=== PATIENT | male | born 1975 | race Caucasian/White ===

== ENCOUNTER 2018-07-21 15:35 | Day surgery (SDC) | payer OTHER ==
[2018-07-18 17:04] VITALS: BMI 30.4
[2018-07-21 16:32] LABS: ALB/GLOB RATIO 1.2 (1.1-1.8); ALBUMIN 4.6 g/dL (3.0-4.8); ALT/SGPT 31 U/L (7-56); AST/SGOT 29 U/L (17-59); BLOOD UREA NITROGEN 14 mg/dL (7-21); CALCIUM 9.3 mg/dL (8.4-10.5); GFR NON-AFRICAN AMERICAN > 60
[2018-07-21 16:46] LABS: BASO # 0.03 K/mm3 (0.0-2.0); BASO % 0.3 % (0.0-3.0); EOS # 0.3 (0.0-0.7); EOS % 2.8 % (1.5-5.0); HEMOGLOBIN 16.2 g/dL (14.0-18.0); LYMPH # 3.2 (1.2-3.4); LYMPH % 33.6 % (22.0-35.0); MEAN CELL VOLUME 79.5 fl (80.0-105.0); MEAN CORPUSCULAR HEMOGLOBIN 25.6 pg (25.0-35.0); MEAN CORPUSCULAR HGB CONC 32.1 g/dl (31.0-37.0); MEAN PLATELET VOLUME 9.2 fl (7.0-11.0); MONO # 0.6 (0.1-0.6); MONO % 5.8 % (1.0-6.0); RBC 6.34 10^6/uL (3.5-6.1); RED CELL DISTRIBUTION WIDTH 13.9 % (11.5-14.5); WHITE BLOOD COUNT 9.6 10^3/uL (4.5-11.0)
[2018-07-21 17:10] VITALS: TEMP 98.1
[2018-07-21] MEDS ORDERED: Midazolam 2 MG/2 ML VIAL ONE (18:31)
[2018-07-21] MEDS ORDERED: Propofol 10 mg/ml Inj (20 ML) ONE (18:31)
[2018-07-21] MEDS ORDERED: Bupivacaine 0.5% 50 ML IJ ONE (18:40)
[2018-07-21] MEDS ORDERED: HYDROmorphone 0.5 mg/0.5 ml ISec IVP PRN (20:14)
[2018-07-21] MEDS ORDERED: Lactated Ringer's 1,000 ML IV SCH (20:15)
--- NOTE | 2018-07-21 20:16 | PCM.SURG1 ---
Surgeon's Initial Post Op Note - Surgeon's Notes Surgeon: Dr. Herminio Blackmon Resilient Tile Installer: Jhoan Sullivan PGY2, Jhoan Bowman PGY2 Type of Anesthesia: General LMA Anesthesia Administered By: Dr. Nathan Pre-Operative Diagnosis: Right 5th metatarsal fracture Operative Findings: see operative report. m: 4.0 x 34mm synthes partially threaded cannulated screw, 2-0 nylon. i: 10cc 0.5% marcaine Post-Operative Diagnosis: same Operation Performed: Right closed reduction and percutaneous pinning of 5th metatarsal fracture Specimen/Specimens Removed: n/a Estimated Blood Loss: EBL {In ML}: 1 Blood Products Given: N/A Drains Used: No Drains Post-Op Condition: Good Date of Surgery/Procedure: 07/21/18 Time of Surgery/Procedure: 20:16
[2018-07-21] MEDS ORDERED: Oxycodone/Acetaminophen 5/325 mg Tab PO PRN ×2 (20:17)
[2018-07-21 22:29] VITALS: RESP 18
[2018-07-21 23:26] VITALS: BP 131/88; PULSE 96; O2SAT 95
--- NOTE | 2018-07-22 12:18 | RAD ---
Date of service: 07/21/2018 PROCEDURE: Right Foot Radiographs. HISTORY: s/p right 5th metatarsal fracture orif COMPARISON: None. TECHNIQUE: 3 views obtained. FINDINGS: BONES: There is a screw through a transverse fracture at the base of the 5th metatarsal. JOINTS: Normal. SOFT TISSUES: Normal. OTHER FINDINGS: None. IMPRESSION: There is a screw through a transverse fracture at the base of the 5th metatarsal.
--- NOTE | 2018-07-22 12:19 | RAD ---
Date of service: 07/21/2018 PROCEDURE: Fluoroscopy up to 1 hr HISTORY: ORIF RT 5TH METATARSAL COMPARISON: TECHNIQUE: 150.3 sec of fluoro time. Cumulative dose 4.24 mGy. Three images submitted FINDINGS: There is a screw through a transverse fracture at the base of the 5th metatarsal. IMPRESSION: As above
--- NOTE | 2018-07-24 23:12 | OP ---
PROCEDURE DATE: 07/21/2018 PREOPERATIVE DIAGNOSIS: Right foot fifth metatarsal fracture. POSTOPERATIVE DIAGNOSIS: Right foot fifth metatarsal fracture. PROCEDURE: Right foot fifth metatarsal closed reduction and percutaneous pinning. SURGEON: Herminio Blackmon DPM ASSISTANTS: Rk Sullivan DPM, PGY-2 and Benjamin Bowman DPM, PGY-2 ANESTHESIA: General LMA. ANESTHESIOLOGIST: Kevni Nathan DO INDICATIONS: The patient is a 43-year-old male with the above mentioned diagnosis. The patient is being treated by Dr. Blackmon in his office on an outpatient basis where he has exhausted multiple forms of conservative treatment. The patient requires surgical intervention at this time. The patient signed the consent after careful explanation of risks, benefits, alternatives, and complications of procedure and wishes to proceed. No guarantees were given nor implied. NPO was confirmed prior to bringing the patient to the operating room. PREPARATION: The patient was brought into the operating room and placed on the operating room table in supine position. A time-out was performed for identification of the correct patient and procedure. After the induction of general LMA, the right foot was prepped and draped in a normal sterile manner. A well-padded pneumatic ankle tourniquet was placed on to the patient's right lower extremity. An Esmarch tourniquet was inflated to 250 mmHg and the procedure began. DESCRIPTION OF PROCEDURE: Right fifth metatarsal fracture closed reduction and percutaneous pinning: Attention was directed to the lateral aspect of the right foot at the base of the fifth metatarsal. Under C-arm guidance, the styloid process was identified. An approximately 2-cm linear longitudinal incision was made dorsolateral to the right fifth metatarsal base where the fracture was located. The incision was deepened through subcutaneous tissue using a combination of sharp and blunt dissection with care being taken to identify and retract all vital neurovascular structures. All bleeders were cauterized and ligated as necessary. At this time, a K-wire was placed across the fracture site. Following AO principles and technique, a 4.0 x 34 mm Synthes partially threaded cannulated screw was placed across the fracture site with compression noted, and the fracture reduced to a more anatomical alignment. It was then confirmed under fluoroscopic guidance. The surgical site was then irrigated with copious amounts of sterile saline. Subcutaneous tissue was closed using 4-0 Vicryl, and the skin was reapproximated using 2-0 nylon using a vertical mattress technique. Postoperative dressings included Xeroform and a dry sterile dressing. POSTOPERATIVE CONDITION: The patient tolerated the procedure and anesthesia well and was escorted to the recovery room with vital signs stable and neurovascular status intact to the right lower extremity. The patient will follow up with Dr. Blackmon in his office on an outpatient basis. Rk Sullivan DPM Herminio Blackmon DPM
== END 2018-07-21 23:11 | disposition home or self-care (01) ==
LOC: SDS 15:35 → 5RSO 21:22 → SDS 23:11
PROVIDERS: ATTEND Podiatrist
DX: S92.351A Displaced fracture of fifth metatarsal bone, right foot, initial encounter for closed fracture (principal); W19.XXXA Unspecified fall, initial encounter; Y92.9 Unspecified place or not applicable
CPT/HCPCS: 28476; 36415; 73630; 80053; 85025; C1713; C1769; J0690; J1170; J2250; J2704; J3010; J7120 ×2

== ENCOUNTER 2018-07-28 15:41 | Inpatient (IN) | payer OTHER ==
[2018-07-28 16:00] VITALS: BMI 31.9
[2018-07-28] MEDS ORDERED: Sodium Chloride 0.9% 1,000 ML IV STA (16:31)
--- NOTE | 2018-07-28 17:15 | ED PDOC ---
Arrival/HPI - General Chief Complaint: Lower Extremity Problem/Injury Historian: Patient - History of Present Illness Narrative History of Present Illness (Text): 07/28/18 17:10 43 year old M with pmh of HTN and osteoarthritis presents via EMS with chief complaint of chest pain and SOB x2days. Patient also complains of left shoulder pain when with deep inhalation. Patient report taking motrin which failed to relive any pain. Patient recently had right leg surgery. Patient denies any fevers, chills, headache, dizziness, dyspnea on exertion, cough, diaphoresis, abdominal pain, nausea, vomiting, diarrhea, back pain, neck pain, or any other complaint. Time/Duration: < week Symptom Onset: Sudden Symptom Course: Unchanged Activities at Onset: Light Context: Home Past Medical History - Provider Review Nursing Documentation Reviewed: Yes - Tetanus Immunization Tetanus Immunization: Unknown, Up to Date - Past Medical History Past Medical History: No Previous - Cardiac Hx Pacemaker: No - Neurological Hx Paralysis: No - Hematological/Oncological Hx Blood Transfusions: No - Musculoskeletal/Rheumatological Hx Musculoskeletal Disorders: No - Psychiatric Hx Emotional Abuse: No Hx Physical Abuse: No Hx Substance Use: No - Past Surgical History Past Surgical History: No Previous - Anesthesia Hx Anesthesia: Yes Hx Anesthesia Reactions: No Hx Malignant Hyperthermia: No - Suicidal Assessment Feels Threatened In Home Enviroment: No Family/Social History - Physician Review Nursing Documentation Reviewed: Yes Family/Social History: Unknown Family HX Smoking Status: Heavy Smoker > 10 Cigarettes Daily Hx Alcohol Use: No Hx Substance Use: No Hx Substance Use Treatment: No Allergies/Home Meds Allergies/Adverse Reactions: Allergies No Known Allergies Allergy (Verified 10/30/15 17:46) Home Medications: Home Meds Medication Instructions Recorded Confirmed Metoprolol Succinate XL [Toprol XL] 25 mg PO DAILY 10/30/15 07/21/18 hydroCHLOROthiazide [Hydrodiuril] 25 mg PO DAILY 07/18/18 07/21/18 Review of Systems - Physician Review All systems were reviewed & negative as marked: Yes - Review of Systems Constitutional: absent: Fevers ENT: absent: Sore Throat, Rhinorrhea, Epistaxis Respiratory: SOB. absent: Cough, Wheezing Cardiovascular: Chest Pain. absent: Palpitations, Syncope Gastrointestinal: absent: Abdominal Pain, Constipation, Diarrhea, Nausea, Vomiting Musculoskeletal: Arthralgias (left shoulder). absent: Back Pain, Neck Pain Skin: absent: Rash Neurological: absent: Headache, Dizziness Physical Exam Vital Signs Reviewed: Yes Medical Decision Making ED Course and Treatment: 07/28/18 17:15 Impression: 43 year old M presents via EMS with chief complaint of chest pain and SOB x2days Plan: -- Labs --Rocephin --Azithromycin -- EKG -- Toradol -- Reglan -- Urinalysis -- Reassess and disposition Prior Visits: Notes and results from previous visits were reviewed. Progress Notes: 07/28/18 18:37 CXR reviewed with left lower lobe infiltrate noted and leukocytosis of 12 noted. Antibiotics ordered with patient and family updated on plan for admission. Discussed case with Dr. Phillips(hospitalist) who accepts patient under his service. - Lab Interpretations Lab Results: 07/28/18 17:45 07/28/18 17:45 Lab Results 07/28/18 17:45: Sodium 135, Potassium 4.4, Chloride 98, Carbon Dioxide 26, Anion Gap 15, BUN 13, Creatinine 0.7 L, Est GFR ( Amer) > 60, Est GFR (Non-Af Amer) > 60, Random Glucose 106, Calcium 8.8, Total Bilirubin 0.7, AST 102 H D, ALT 137 H, Alkaline Phosphatase 140 H D, Troponin I 0.02 D, Total Protein 7.8, Albumin 3.8, Globulin 3.9, Albumin/Globulin Ratio 1.0 L, Lipase 34 07/28/18 17:45: PT 15.0 H, INR 1.35, APTT 29.2, D-Dimer, Quantitative 1530 H 07/28/18 17:45: WBC 12.4 H D, RBC 5.55, Hgb 14.2 D, Hct 43.3, MCV 78.0 L, MCH 25.6, MCHC 32.8, RDW 13.8, Plt Count 271, MPV 9.2, Neut % (Auto) 64.3, Lymph % (Auto) 21.4 L, [place] % (Auto) 13.3 H, Eos % (Auto) 0.8 L, Baso % (Auto) 0.2, Lymph # (Auto) 2.7, [place] # (Auto) 1.6 H, Eos # (Auto) 0.1, Baso # (Auto) 0.02, Absolute Neuts (auto) 7.95 H I have reviewed the lab results: Yes - RAD Interpretation Narrative RAD Interpretations (Text): 07/28/18 18:16 Chest X ray Left lower lobe airspace consolidation appears consistent with pneumonia. Correlate clinically. Left hilar prominence. Radiology Orders: 07/28/18 16:31 CHEST PORTABLE [RAD] Stat [employer] Salesperson: Radiologist - EKG Interpretation EKG Interpretation (Text): 07/28/18 16:13 EKG Sinus Tachycardia @ 102 BPM. [address]H present. No ST elevations. Interpreted by ED Physician: Yes Type: 12 lead EKG - Medication Orders Current Medication Orders: Sodium Chloride (Sodium Chloride 0.9%) 1,000 mls @ 999 mls/hr IV .Q1H1M STA Stop: 07/28/18 17:31 Discontinued Medications Ketorolac Tromethamine (Toradol) 60 mg IM STAT STA Stop: 07/28/18 16:17 Metoclopramide HCl (Reglan) 10 mg IVP STAT STA Stop: 07/28/18 16:35 Ceftriaxone Sodium (Rocephin 1 Gram Ivpb) 1 gm in 100 mls @ 100 mls/hr IVPB STAT STA; Protocol Stop: 07/28/18 19:08 Last Admin: 07/28/18 18:30 Dose: 100 mls/hr eMAR Start Stop Document 07/28/18 18:30 CD (Rec: 07/28/18 18:30 CD [place] [id number]) Intravenous Solution Start Date 07/28/18 Start Time 18:30 End Date 07/28/18 End time 19:30 Total Infusion Time 60 Azithromycin (Zithromax 500mg In Ns) 500 mg in 250 mls @ 167 mls/hr IVPB STAT STA; Protocol Stop: 07/28/18 19:38 Discontinued Medications Sodium Chloride (Sodium Chloride 0.9%) 1,000 mls @ 999 mls/hr IV .Q1H1M STA Stop: 07/28/18 17:31 Last Admin: 07/28/18 17:45 Dose: 999 mls/hr eMAR Start Stop Document 07/28/18 17:45 CD (Rec: 07/28/18 18:19 CD [place] [id number]) Intravenous Solution Start Date 07/28/18 Start Time 17:45 End Date 07/28/18 End time 18:46 Total Infusion Time 61 Ketorolac Tromethamine (Toradol) 60 mg IM STAT STA Stop: 07/28/18 16:17 Last Admin: 07/28/18 17:55 Dose: 60 mg MAR Pain Assessment Document 07/28/18 17:55 CD (Rec: 07/28/18 18:19 CD [facility] [place]) Pain Reassessment Is this a pain reassessment? No Sleep Is patient sleeping during reassessment? No Presence of Pain Presence of Pain Yes Description Intensity of Pain at present 10 IM Administration Charges Document 07/28/18 17:55 CD (Rec: 07/28/18 18:19 CD [id number]) Charges for Administration # of IM Administrations 1 Metoclopramide HCl (Reglan) 10 mg IVP STAT STA Stop: 07/28/18 16:35 Last Admin: 07/28/18 17:55 Dose: 10 mg IVP Administration Document 07/28/18 17:55 CD (Rec: 07/28/18 18:19 CD [facility] [place]-[facility]) Charges for Administration # of IVP Administrations 1 - Scribe Statement The provider has reviewed the documentation as recorded by the Gris [place] All medical record entries made by the Daniibdavid were at my direction and personally dictated by me. I have reviewed the chart and agree that the record accurately reflects my personal performance of the history, physical exam, medical decision making, and the department course for this patient. I have also personally directed, reviewed, and agree with the discharge instructions and disposition. Disposition/Present on Arrival - Present on Arrival Any Indicators Present on Arrival: No History of DVT/PE: No History of Uncontrolled Diabetes: No Urinary Catheter: No History of Decub. Ulcer: No History Surgical Site Infection Following: None - Disposition Have Diagnosis and Disposition been Completed?: Yes Diagnosis: PNA (pneumonia) Disposition: HOSPITALIZED Disposition Time: 18:40 Patient Plan: Admission Condition: STABLE
--- NOTE | 2018-07-28 17:32 | RAD ---
HISTORY: right sided rib pain COMPARISON: Chest x-ray performed 12/21/14 TECHNIQUE: Chest, one view. FINDINGS: Examination limited by habitus and patient obliquity. LUNGS: Left lower lobe airspace consolidation appears consistent with pneumonia. Left hilar prominence. PLEURA: No significant pleural effusion identified. No definite pneumothorax . CARDIOVASCULAR: Heart size appears within normal limits. No significant atherosclerotic calcification present. OSSEOUS STRUCTURES: Degenerative changes. VISUALIZED UPPER ABDOMEN: Unremarkable. OTHER FINDINGS: None. IMPRESSION: Left lower lobe airspace consolidation appears consistent with pneumonia. Correlate clinically. Left hilar prominence.
[2018-07-28 17:54] LABS: BASO # 0.02 K/mm3 (0.0-2.0); BASO % 0.2 % (0.0-3.0); EOS # 0.1 (0.0-0.7); EOS % 0.8 % (1.5-5.0); HEMOGLOBIN 14.2 g/dL (14.0-18.0); LYMPH # 2.7 (1.2-3.4); LYMPH % 21.4 % (22.0-35.0); MEAN CORPUSCULAR HEMOGLOBIN 25.6 pg (25.0-35.0); MEAN CORPUSCULAR HGB CONC 32.8 g/dl (31.0-37.0); MEAN PLATELET VOLUME 9.2 fl (7.0-11.0); MONO # 1.6 (0.1-0.6); MONO % 13.3 % (1.0-6.0); RBC 5.55 10^6/uL (3.5-6.1); RED CELL DISTRIBUTION WIDTH 13.8 % (11.5-14.5); WHITE BLOOD COUNT 12.4 10^3/uL (4.5-11.0)
[2018-07-28 18:03] LABS: ALBUMIN 3.8 g/dL (3.0-4.8); ALT/SGPT 137 U/L (7-56); AST/SGOT 102 U/L (17-59); BLOOD UREA NITROGEN 13 mg/dL (7-21); CALCIUM 8.8 mg/dL (8.4-10.5); GFR NON-AFRICAN AMERICAN > 60; LIPASE 34 U/L (23-300)
[2018-07-28] MEDS ORDERED: Piperacill/Tazo 4.5gm in NS 4.5 GM/100 ML BAG IVPB STA (18:05)
[2018-07-28] MEDS ORDERED: cefTRIAXone 1 gm 1 GM/100 ML BAG IVPB STA (18:09)
[2018-07-28] MEDS ORDERED: Azithromycin 500MG/NS 250ml 500 MG/250 ML BAG IVPB STA ×2 (18:09→21:45)
[2018-07-28 18:11] LABS: TROPONIN I 0.02 ng/mL
[2018-07-28 18:13] LABS: INR 1.35; PARTIAL THROMBOPLASTIN TIME 29.2 Seconds (26.9-38.3)
--- NOTE | 2018-07-28 18:58 | CP.PCM.HP ---
<Gustavo Nielsen - Last Filed: 07/28/18 22:12> History of Present Illness - History of Present Illness History of Present Illness: HISTORY & PHYSICAL NOTE FOR HOSPITALIST SERVICE- DR. SAUL Nielsen PGY1 43 y/o M with PMHx HTN, palpitations POD6(07/22) s/p ORIF L 5th metatarsal presented to ED with complaints of SOB, L sided chest pain with radiation to L shoulder, severe R leg pain that began about 3 days ago. Pt reports he underwent his R foot surgery after falling on and was recovering well until 3 days ago when he noticed the symptoms. Pt also noted increased diaphoresis associated with the symptoms. He reports his chest pain is worse with inspiration with increased radiation to L shoulder. He has taken ibuprofen for pain however did not find relief. He also reports shortness of breath, and discomfort with breathing, without productive sputum. He reports subjective fevers. He denies chills, headache, dizziness, numbness/tingling, nausea, vomiting, constipation, diarrhea, dysuria. In ED: 1L NS, ceftriaxone 1gm, metoclopramide 10mg, toradol 60mg IM PMH: HTN, "palpitations" All: NKDA PSH: R 5th metatarsal ORIF SH: smokes cigarette 1pack/day x 20+ years, denies ETOH, illicit drug use FH: Mother: ; CVA, heart disease. Father: ; [place] Meds: Toprol, HCTZ (pharmacy is closed) PMD: Dr. Garcia Pharmacy: [facility] pharmacy Present on Admission - Present on Admission Any Indicators Present on Admission: Yes History of DVT/PE: Yes Review of Systems - Review of Systems Review of Systems: per HPI Past Patient History - Tetanus Immunizations Tetanus Immunization: Unknown, Up to Date - Past Social History Smoking Status: Heavy Smoker > 10 Cigarettes Daily - CARDIAC Hx Pacemaker: No - NEUROLOGICAL Hx Paralysis: No - HEMATOLOGICAL/ONCOLOGICAL Hx Blood Transfusions: No - MUSCULOSKELETAL/RHEUMATOLOGICAL Hx Musculoskeletal Disorders: No - PSYCHIATRIC Hx Emotional Abuse: No Hx Physical Abuse: No Hx Substance Use: No - SURGICAL HISTORY Hx Surgeries: Yes - ANESTHESIA Hx Anesthesia: Yes Hx Anesthesia Reactions: No Hx Malignant Hyperthermia: No Meds Allergies/Adverse Reactions: Allergies Allergy/AdvReac Type Severity Reaction Status Date / Time No Known Allergies Allergy Verified 10/30/15 17:46 Physical Exam - Constitutional Appears: Non-toxic, In Acute Distress - Head Exam Head Exam: NORMAL INSPECTION, NORMOCEPHALIC - Eye Exam Eye Exam: EOMI, Normal appearance - ENT Exam ENT Exam: Mucous Membranes Moist, Normal Exam - Neck Exam Neck exam: Positive for: Normal Inspection - Respiratory Exam Respiratory Exam: Clear to Auscultation Bilateral, NORMAL BREATHING PATTERN. absent: Rales - Cardiovascular Exam Cardiovascular Exam: Tachycardia, +S1, +S2 - GI/Abdominal Exam GI & Abdominal Exam: Soft - Extremities Exam Additional comments: R thigh tenderness Dressing noted over R foot - Back Exam Back exam: NORMAL INSPECTION - Neurological Exam Neurological exam: Alert, Oriented x3 - Psychiatric Exam Psychiatric exam: Normal Affect, Normal Mood - Skin Skin Exam: Dry, Intact, Warm Results - Vital Signs Recent Vital Signs: Last Vital Signs Temp 98.8 F 07/28/18 18:42 Pulse 102 H 07/28/18 18:42 Resp 19 07/28/18 18:42 BP 127/79 07/28/18 18:42 Pulse Ox 95 07/28/18 18:42 - Labs Result Diagrams: 07/28/18 17:45 07/28/18 17:45 Labs: Laboratory Results - last 24 hr 07/28/18 07/28/18 07/28/18 17:45 17:45 17:45 WBC 12.4 H D RBC 5.55 Hgb 14.2 D Hct 43.3 MCV 78.0 L MCH 25.6 MCHC 32.8 RDW 13.8 Plt Count 271 MPV 9.2 Neut % (Auto) 64.3 Lymph % (Auto) 21.4 L [place] % (Auto) 13.3 H Eos % (Auto) 0.8 L Baso % (Auto) 0.2 Lymph # (Auto) 2.7 [place] # (Auto) 1.6 H Eos # (Auto) 0.1 Baso # (Auto) 0.02 Absolute Neuts (auto) 7.95 H PT 15.0 H INR 1.35 APTT 29.2 D-Dimer, Quantitative 1530 H Sodium 135 Potassium 4.4 Chloride 98 Carbon Dioxide 26 Anion Gap 15 BUN 13 Creatinine 0.7 L Est GFR ( Amer) > 60 Est GFR (Non-Af Amer) > 60 Random Glucose 106 Calcium 8.8 Total Bilirubin 0.7 AST 102 H D ALT 137 H Alkaline Phosphatase 140 H D Troponin I 0.02 D Total Protein 7.8 Albumin 3.8 Globulin 3.9 Albumin/Globulin Ratio 1.0 L Lipase 34 Assessment & Plan - Assessment and Plan (Free Text) Assessment: 43 y/o M with PMH of HTN, "palpitations", POD6 s/p R 5th metatarsal ORIF presenting with chest pain, shortness of breath, diaphoresis. Plan: Pulmonary Embolism Pt s/p surgery, tachycardic, SOB, R thigh tenderness Wells score: 9. D-Dimer 1530 CTA 07/28 (prelim): "Evidence of extensive L sided pulmonary emboli as described. Elevated RV/LV ratio estimated to be 1:1 indicative of significant right ventricular strain. Large posterior L lower lobe pneumonic consolidation, less likely pulmonary infarct. Hepatomegaly" B/L LE duplex 07/28 (prelim): Rt (+) EKG: Sinus Tachycardia @ 102 BPM. [address] present. No ST elevations. Start therapeutic lovenox at 1mg/kg Q12h. Monitor CBC Sepsis 2/2 pneumonia Leukocytosis + tachycardia + LLL pneumonia 1L IVF bolus in ED Will continue maintainence IVF CT as noted start empiric rocephin/azithromycin f/u procalcitonin f/u cultures POD6 s/p R 5th metatarsal ORIF dressing in place Podiatry consulted Transaminitis f/u abdominal u/s DVT/GI: Lovenox/Protonix Case reviewed with attending physician, Dr. Saul Nielsen PGY1 <Anisha Ramirez - Last Filed: 07/29/18 02:32> Results - Vital Signs Recent Vital Signs: Last Vital Signs Temp 98.5 F 07/28/18 23:24 Pulse 87 07/28/18 23:24 Resp 16 07/28/18 23:24 BP 123/82 07/28/18 23:24 Pulse Ox 96 07/28/18 23:24 - Labs Result Diagrams: 07/28/18 17:45 07/28/18 17:45 Labs: Laboratory Results - last 24 hr 07/28/18 07/28/18 07/28/18 17:45 17:45 17:45 WBC 12.4 H D RBC 5.55 Hgb 14.2 D Hct 43.3 MCV 78.0 L MCH 25.6 MCHC 32.8 RDW 13.8 Plt Count 271 MPV 9.2 Neut % (Auto) 64.3 Lymph % (Auto) 21.4 L [place] % (Auto) 13.3 H Eos % (Auto) 0.8 L Baso % (Auto) 0.2 Lymph # (Auto) 2.7 [place] # (Auto) 1.6 H Eos # (Auto) 0.1 Baso # (Auto) 0.02 Absolute Neuts (auto) 7.95 H PT 15.0 H INR 1.35 APTT 29.2 D-Dimer, Quantitative 1530 H Sodium 135 Potassium 4.4 Chloride 98 Carbon Dioxide 26 Anion Gap 15 BUN 13 Creatinine 0.7 L Est GFR ( Amer) > 60 Est GFR (Non-Af Amer) > 60 Random Glucose 106 Calcium 8.8 Total Bilirubin 0.7 AST 102 H D ALT 137 H Alkaline Phosphatase 140 H D Troponin I 0.02 D Total Protein 7.8 Albumin 3.8 Globulin 3.9 Albumin/Globulin Ratio 1.0 L Lipase 34 07/28/18 07/29/18 21:30 01:25 WBC RBC Hgb Hct MCV MCH MCHC RDW Plt Count MPV Neut % (Auto) Lymph % (Auto) [place] % (Auto) Eos % (Auto) Baso % (Auto) Lymph # (Auto) [place] # (Auto) Eos # (Auto) Baso # (Auto) Absolute Neuts (auto) PT INR APTT D-Dimer, Quantitative Sodium Potassium Chloride Carbon Dioxide Anion Gap BUN Creatinine Est GFR ( Amer) Est GFR (Non-Af Amer) Random Glucose Calcium Total Bilirubin AST ALT Alkaline Phosphatase Troponin I < 0.01 D < 0.01 Total Protein Albumin Globulin Albumin/Globulin Ratio Lipase Attending/Attestation - Attestation I have personally seen and examined this patient.: Yes I have fully participated in the care of the patient.: Yes I have reviewed all pertinent clinical information: Yes Notes (Text): 07/29/18 02:31 Patient was seen when he was in bed # 566-03. Medical record was reviewed. Agree with history, physical examination, assessment and plan.
[2018-07-28] MEDS: Enoxaparin 100 mg Syringe SC SCH (21:53)
[2018-07-28] MEDS: Sodium Chloride 0.9% 1,000 ML IV SCH (23:47)
[2018-07-29 07:16] LABS: BASO # 0.02 K/mm3 (0.0-2.0); BASO % 0.2 % (0.0-3.0); EOS # 0.1 (0.0-0.7); EOS % 1.4 % (1.5-5.0); HEMOGLOBIN 12.4 g/dL (14.0-18.0); LYMPH % 20.9 % (22.0-35.0); MEAN CELL VOLUME 78.4 fl (80.0-105.0); MEAN CORPUSCULAR HEMOGLOBIN 24.8 pg (25.0-35.0); MEAN CORPUSCULAR HGB CONC 31.6 g/dl (31.0-37.0); MEAN PLATELET VOLUME 8.9 fl (7.0-11.0); MONO # 1.3 (0.1-0.6); MONO % 13.5 % (1.0-6.0); RBC 5.01 10^6/uL (3.5-6.1); RED CELL DISTRIBUTION WIDTH 14.1 % (11.5-14.5); WHITE BLOOD COUNT 9.5 10^3/uL (4.5-11.0)
[2018-07-29 07:39] LABS: LDL CHOLESTEROL 104 mg/dL (0-129)
[2018-07-29 07:40] LABS: ALBUMIN 3.4 g/dL (3.0-4.8); ALT/SGPT 153 U/L (7-56); AST/SGOT 112 U/L (17-59); BLOOD UREA NITROGEN 17 mg/dL (7-21); CALCIUM 8.4 mg/dL (8.4-10.5); GFR NON-AFRICAN AMERICAN > 60; HDL CHOLESTEROL 14 mg/dL (29-60)
--- NOTE | 2018-07-29 08:24 | CT ---
Date of service: 07/28/2018 PROCEDURE: CT Chest with contrast (Pulmonary Angiogram) HISTORY: ?PE COMPARISON: None available. TECHNIQUE: Axial computed tomography images were obtained of the chest in the pulmonary arterial phase of enhancement. Coronal and sagittal reformatted images were created and reviewed. Intravenous contrast dose: 150 cc of Omni 350 Radiation dose: Total exam DLP = 562.45 mGy-cm. This CT exam was performed using one or more of the following dose reduction techniques: Automated exposure control, adjustment of the mA and/or kV according to patient size, and/or use of iterative reconstruction technique. FINDINGS: PULMONARY ARTERIES: Large emboli are seen in the left lower lobe pulmonary artery. Smaller emboli are seen in the upper lobes bilaterally. The right ventricle is dilated consistent with right ventricular strain. AORTA: No acute findings. No thoracic aortic aneurysm. No aortic atherosclerotic calcification or mural plaque present. LUNGS: There consolidation in the left lower lobe. This is in the distribution of the left lower lobe pulmonary emboli and may represent a pulmonary infarct PLEURAL SPACES: Unremarkable. No effusion or pneumothorax. HEART: Unremarkable. No cardiomegaly. No significant pericardial effusion. LYMPH NODES: No lymphadenopathy. BONES, CHEST WALL: Unremarkable. No fracture or destructive lesion OTHER FINDINGS: The report concurs with the preliminary [facility] report IMPRESSION: Large emboli are seen in the left lower lobe pulmonary artery. Smaller emboli are seen in the upper lobes bilaterally. The right ventricle is dilated consistent with right ventricular strain. There consolidation in the left lower lobe. This is in the distribution of the left lower lobe pulmonary emboli and may represent a pulmonary infarct
--- NOTE | 2018-07-29 09:09 | US ---
HISTORY: Leg pain and swelling. Evaluate for DVT PHYSICIAN(S): Herminio Montanez MD. TECHNIQUE: Duplex sonography and color-flow Doppler with graded compression were used to evaluate the deep venous systems of both lower extremities. FINDINGS: There is extensive hypoechoic occlusive thrombus noted in the right external iliac vein, right common femoral vein, right femoral vein, right popliteal vein, and visualized right tibial veins. There is no sonographic evidence for deep venous thrombosis the visualized segments of left lower extremity IMPRESSION: Extensive right iliofemoral DVT as described above. The thrombus extends into the right external iliac vein. The patient should have a CT scan of the chest abdomen and pelvis with IV contrast to evaluate the IVC and iliac veins. If clinically indicated, the patient should be evaluated for possible catheter-directed venous thrombolysis
[2018-07-29] MEDS ORDERED: cefTRIAXone 1 gm 1 GM/100 ML BAG IVPB SCH (10:00)
[2018-07-29] MEDS ORDERED: Azithromycin 500MG/NS 250ml 500 MG/250 ML BAG IVPB SCH (10:00)
[2018-07-29] MEDS ORDERED: Enoxaparin 40 mg Syringe SC SCH (10:00)
[2018-07-29] MEDS: Enoxaparin 100 mg Syringe SC SCH ×2 (10:41→22:10)
[2018-07-29] MEDS: Sodium Chloride 0.9% 1,000 ML IV SCH (10:41)
--- NOTE | 2018-07-29 11:43 | CARD ---
APPROVED REPORT Date of service: 07/29/2018 EKG Measurement Heart [id number] <Conclusion> Normal sinus rhythm early repolarization Borderline ECG
--- NOTE | 2018-07-29 11:45 | US ---
Date of service: 07/29/2018 HISTORY: transaminitis COMPARISON: Upper abdomen segment from CT angio of the chest 07/28/2018 as well as abdomen pelvis CT without contrast 12/03/2015. TECHNIQUE: Sonographic evaluation of the abdomen. FINDINGS: LIVER: Measures 19.3 cm. Diffusely increased echogenicity of the liver parenchyma with prominent size suggestive of [id number] hepatomegaly. No mass. No intrahepatic bile duct dilatation. Normal directional blood flow is appreciated at the main portal vein. GALLBLADDER: Gallbladder is only mildly distended. No cholelithiasis associated. No pericholecystic fluid collection. Evaluation of the wall is limited due to lack of adequate distention of the gallbladder. COMMON BILE DUCT: Measures 4.5 mm. No stones. No dilatation. PANCREAS: The body of pancreas is unremarkable the remainder obscured by overlying bowel gas otherwise. RIGHT KIDNEY: Measures 13.7cm. Normal echogenicity. No calculus, mass, or hydronephrosis. LEFT KIDNEY: Measures 13.0cm. Normal echogenicity. No calculus, mass, or hydronephrosis. SPLEEN: Normal in size and contour. No mass. AORTA: No aneurysmal dilatation. IVC: Unremarkable. OTHER FINDINGS: None. IMPRESSION: Hepatic steatosis noted without focal mass or intrahepatic biliary duct dilatation. [id number] hepatomegaly suggested. Body of pancreas is unremarkable with the remainder obscured by overlying bowel gas.
--- NOTE | 2018-07-29 11:50 | CARD ---
APPROVED REPORT Date of service: 07/28/2018 EKG Measurement Heart [id number] <Conclusion> Sinus tachycardia Minimal voltage criteria for LVH, may be normal variant Borderline ECG
--- NOTE | 2018-07-29 11:59 | CARD ---
APPROVED REPORT Date of service: 07/29/2018 EXAM: Two-dimensional and M-mode echocardiogram with Doppler and color Doppler. INDICATION Pulmonary Embolism DILATED RV 2D DIMENSIONS Left Atrium (2D)3.7 (1.6-4.0cm)IVSd1.1 (0.7-1.1cm) LVDd5.2 (3.9-5.9cm)PWd1.1 (0.7-1.1cm) LVDs3.6 (2.5-4.0cm)FS (%) 31.2 % LVEF (%)58.7 (>50%) M-Mode DIMENSIONS Aortic Root3.00 (2.2-3.7cm)Aortic Cusp Exc.2.20 (1.5-2.0cm) Aortic Valve AoV Peak Fhazhvgv454.0cm/Michael Peak GR.8mmHg Mitral Valve MV E Ejetkedi895.0cm/sMV A Leqnmcof71.9cm/sE/A ratio1.8 TDI E/Lateral E'0.0E/Medial E'0.0 LEFT VENTRICLE The left ventricle is normal size. There is normal left ventricular wall thickness. The left ventricular function is normal.EF-55-60% There is normal LV segmental wall motion. The left ventricular diastolic function is normal. No left ventricle thrombus noted on this study. There is no ventricular septal defect visualized. There is no left ventricular aneurysm. There is no mass noted in the left ventricle. RIGHT VENTRICLE The right ventricle is normal size. There is normal right ventricular wall thickness. The right ventricular systolic function is normal. ATRIA The left atrium size is normal. The right atrium size is normal. The interatrial septum is intact with no evidence for an atrial septal defect. AORTIC VALVE The aortic valve is thickened but opens well. There is trace aortic regurgitation. There is no aortic valvular stenosis. There is no aortic valvular vegetation. MITRAL VALVE The mitral valve is mildly thickened. Mitral regurgitation is trace. There is no mitral valve stenosis. minimal MVP of annterior Leaflet in some view only. TRICUSPID VALVE The tricuspid valve leaflets are thickened , but open well. There is trace tricuspid regurgitation. There is no tricuspid valve stenosis. There is no tricuspid valve prolapse or vegetation. PULMONIC VALVE The pulmonary valve is normal in structure. There is trace pulmonic valvular regurgitation. There is no pulmonic valvular stenosis. GREAT VESSELS The aortic root is normal in size. The ascending aorta is normal in size. The pulmonary artery is normal. The IVC is normal in size and collapses >50% with inspiration. PERICARDIAL EFFUSION There is no pleural effusion. There is no pericardial effusion. <Conclusion> Normal Chamber Size. EF-55-60% Trace MR/TR/AR/PI. No evidence of dilated RV or pulmonary HTN.
--- NOTE | 2018-07-29 12:42 | CP.PCM.PN ---
<Gustavo Nielsen - Last Filed: 07/29/18 13:33> Subjective - Date & Time of Evaluation Date of Evaluation: 07/29/18 Time of Evaluation: 09:00 - Subjective Subjective: INTERNAL MEDICINE PROGRESS NOTE FOR DR. MANUEL Nielsen PGY1 Pt seen and examined at bedside this am. He was resting comfortably. He reports continued pleuritic chest pain, R thigh pain. He is tolerating diet. He otherwise denies 12 point ROS. Objective - Vital Signs/Intake and Output Vital Signs (last 24 hours): Temp Pulse Resp BP Pulse Ox 98.3 F 72 18 146/83 98 07/29/18 06:00 07/29/18 06:00 07/29/18 06:00 07/29/18 06:00 07/29/18 06:00 Intake and Output: 07/29/18 07/29/18 06:59 18:59 Intake Total 1690 240 Output Total 350 Balance 1690 -110 - Medications Medications: Current Medications Enoxaparin Sodium (Lovenox) 100 mg SC Q12H [facility]; Protocol Last Admin: 07/29/18 10:41 Dose: 100 mg Famotidine (Pepcid) 40 mg PO HS LINA Ceftriaxone Sodium (Rocephin 1 Gram Ivpb) 1 gm in 100 mls @ 100 mls/hr IVPB DAILY LINA; Protocol Last Admin: 07/29/18 10:42 Dose: 100 mls/hr Azithromycin (Zithromax 500mg In Ns) 500 mg in 250 mls @ 167 mls/hr IVPB DAILY LINA; Protocol Last Admin: 07/29/18 10:42 Dose: 167 mls/hr Sodium Chloride (Sodium Chloride 0.9%) 1,000 mls @ 100 mls/hr IV .Q10H LINA Last Admin: 07/29/18 10:41 Dose: 100 mls/hr - Labs Labs: 07/29/18 07:00 07/29/18 07:00 PT 15.0 SECONDS (9.4-12.5) H 07/28/18 17:45 INR 1.35 07/28/18 17:45 APTT 29.2 Seconds (26.9-38.3) 07/28/18 17:45 - Constitutional Appears: Non-toxic, In Acute Distress - Head Exam Head Exam: NORMAL INSPECTION, NORMOCEPHALIC - Eye Exam Eye Exam: EOMI, Normal appearance - ENT Exam ENT Exam: Mucous Membranes Moist, Normal Exam - Neck Exam Neck exam: Positive for: Normal Inspection - Respiratory Exam Respiratory Exam: Clear to Auscultation Bilateral, NORMAL BREATHING PATTERN. absent: Rales - Cardiovascular Exam Cardiovascular Exam: Tachycardia, +S1, +S2 - GI/Abdominal Exam GI & Abdominal Exam: Soft - Extremities Exam Additional comments: R thigh tenderness Dressing noted over R foot - Back Exam Back exam: NORMAL INSPECTION - Neurological Exam Neurological exam: Alert, Oriented x3 - Psychiatric Exam Psychiatric exam: Normal Affect, Normal Mood - Skin Skin Exam: Dry, Intact, Warm Assessment and Plan - Assessment and Plan (Free Text) Assessment: 43 y/o M with PMH of HTN, "palpitations", POD6 s/p R 5th metatarsal ORIF presenting with chest pain, shortness of breath, diaphoresis. Plan: Pulmonary Embolism Pt s/p R metatarsal surgery, R thigh tenderness Wells score: 9. D-Dimer 1530 CTA 07/28: Large emboli are seen in the left lower lobe pulmonary artery. Smaller emboli are seen in the upper lobes bilaterally. The right ventricle is dilated consistent with right ventricular strain.There consolidation in the left lower lobe. This is in the distribution of the left lower lobe pulmonary emboli and may represent a pulmonary infarct B/L LE duplex 07/28 (prelim): Extensive right iliofemoral DVT as described above. The thrombus extends into the right external iliac vein. The patient should have a CT scan of the chest abdomen and pelvis with IV contrast to evaluate the IVC and iliac veins. If clinically indicated, the patient should be evaluated for possible catheter-directed venous thrombolysis EKG: Sinus Tachycardia @ 102 BPM. LVH present. No ST elevations. Continue lovenox at 1mg/kg Q12h. 100mg SC Monitor CBC Sepsis 2/2 pneumonia Leukocytosis + tachycardia + LLL pneumonia 1L IVF bolus in ED Will continue maintainence IVF CT as noted start empiric rocephin/azithromycin f/u procalcitonin. Will d/c antibiotic if procalcitonin normal f/u cultures POD6 s/p R 5th metatarsal ORIF dressing in place Podiatry consulted Transaminitis Abdomen U/S (07/29): Hepatic steatosis noted without focal mass or intrahepatic biliary duct dilatation. Novr-wg-bpudgips hepatomegaly suggested. Body of pancreas is unremarkable with the remainder obscured by overlying bowel gas. Hepatitis panel pending DVT/GI: Lovenox/Pepcid Pt to follow up with PMD, Dr. Garcia Case reviewed with attending physician, Dr. Manuel Nielsen PGY1 <Sarah Jackson R - Last Filed: 07/30/18 16:13> Objective - Vital Signs/Intake and Output Vital Signs (last 24 hours): Temp Pulse Resp BP Pulse Ox 98.7 F 77 20 129/84 96 07/30/18 14:00 07/30/18 14:00 07/30/18 14:00 07/30/18 14:00 07/30/18 14:00 Intake and Output: 07/30/18 07/30/18 06:59 18:59 Intake Total 600 Output Total 2260 Balance -1660 - Medications Medications: Current Medications Apixaban (Eliquis) 10 mg PO BID LINA; Protocol Stop: 08/06/18 18:01 Famotidine (Pepcid) 40 mg PO HS [facility] Last Admin: 07/29/18 22:11 Dose: 40 mg - Labs Labs: 07/30/18 06:00 07/30/18 06:00 PT 15.0 SECONDS (9.4-12.5) H 07/28/18 17:45 INR 1.35 07/28/18 17:45 APTT 29.2 Seconds (26.9-38.3) 07/28/18 17:45 Attending/Attestation - Attestation I have personally seen and examined this patient.: Yes I have fully participated in the care of the patient.: Yes I have reviewed all pertinent clinical information, including history, physical exam and plan: Yes Notes (Text): Patient seen and examined by me with resident at approximately 10:50AM on 07/29/18. Case including HPI, physical exam, and assessment and plan discussed with resident. Agree with above with following additions/corrections. Patient is a 43-year-old male past medical history significant for hypertension, palpitations, and status post ORIF of the right foot fifth metatarsal on 07/22/2018 that presented to the emergency room with shortness of breath, left- sided chest pain with radiation to the left shoulder, and right leg pain for 3 days. Patient states he feels a little better. States he is still having chest pain when he takes in deep breaths and coughs. He states he is having some difficulty taking in deep breaths. States he is also having a little right leg pain but it is much improved. No palpitations. No nausea, vomiting, or abdominal pain. No headaches or dizziness. No fevers or chills. No dysuria. Physical exam: General: Awake and alert sitting up in bed in no acute distress HEENT: Normocephalic, atraumatic. Extraocular muscles intact. Pupils equal and reactive, no scleral icterus. Oropharynx pink and moist. No pharyngeal erythema or exudate appreciated. Neck supple. Cardiovascular: Regular rhythm. Normal S1 and S2. No murmurs, rubs, or gallops appreciated Pulmonary: Normal respiratory effort. Decreased breath sounds (difficult for patient to take in deep breath). No rhonchi, rales, or wheezing appreciated Gastrointestinal: Soft, nondistended. Nontender. Positive bowel sounds all 4 quadrants. No guarding. Musculoskeletal: Moves all extremities. Right lower extremity dressing clean, dry, and intact. No edema or calf tenderness left extremity. Central nervous system: AAO x3. No focal deficits appreciated. Dermatologic: Skin warm and dry. Assessment and plan: Patient is a 43-year-old male past medical history significant for hypertension, palpitations, and status post ORIF of the right foot fifth metatarsal on 07/22/2018 that presented to the emergency room with shortness of breath, left-sided chest pain with radiation to the left shoulder, and right leg pain for 3 days. 1. Chest pain secondary to Pulmonary emboli. Right lower extremity pain secondary to DVT. Likely provoked secondary to immobility secondary to recent surgery. CTA chest per radiology showed large emboli are seen in the left upper lobe pulmonary artery; smaller emboli are seen in the upper lobes bilaterally; the right ventricle is dilated consistent with right ventricular strain; there is consolidation in the left lower lobe, this is in the distribution of the left lower lobe pulmonary emboli and may represent a pulmonary infarct. Bilateral venous Dopplers per radiologist's showed extensive right iliofemoral DVT, the thrombus extends into the right external iliac vein. Patient on therapeutic lovenox. IR consulted. Pulmonary recommendations appreciated. Pending 2-D echo results. Continue to monitor on telemetry. 2. Questionable pneumonia. Patient on rocephin and zithromax. Afebrile. Pending blood cultures. Pending procalictonin. Leukocytosis resolved. Will stop antibiotics if procalcitonin is within normal limits and blood cultures are negative, patient does not have symptoms of an infection. 3. Transaminitis. Follow up CPK and hepatitis panel. Abdominal ultrasound per radiologist showed hepatic steatosis noted without focal mass or intrahepatic biliary duct dilatation; mild to moderate hepatomegaly suggested; body pancreas is unremarkable with the remainder of scared by overlying bowel gas 4. S/P ORIF of the right foot fifth metatarsal on 07/22/2018. Podiatry consulted. Dressing in place. 5. GI/DVT prophylaxis. Pepcid/Lovenox Case was discussed in detail with the patient regarding current diagnosis and treatment plan. All questions answered.
--- NOTE | 2018-07-29 12:48 | CP.PCM.CON ---
History of Present Illness - History of Present Illness History of Present Illness: Podiatry Consult note for Dr. Herminio Blackmon, 43 y/o M with PMHx HTN, palpitations POD6 (07/21) s/p ORIF L 5th metatarsal seen and evaluated with Dr. Blackmon due to complaints of SOB, and right leg pain for about 3-4 days. Patient reports he took Ibuprofen at home with no relief. Patient complaining of shortness of breath and fever, but denies chills, headache, dizziness, numbness/tingling, nausea, vomiting, constipation, diarrhea, dysuria. PMHx: HTN All: NKDA PSHx: R 5th metatarsal ORIF Social Hx: smokes cigarette 1pack/day x 20+ years, denies ETOH, illicit drug use Meds: Toprol, HCTZ (pharmacy is closed) PMD: Dr. Garcia Pharmacy: [facility] pharmacy Review of Systems - Review of Systems All systems: reviewed and no additional remarkable complaints except Review of Systems: As per HPI Past Patient History - Tetanus Immunizations Tetanus Immunization: Unknown, Up to Date - Past Social History Smoking Status: Heavy Smoker > 10 Cigarettes Daily - CARDIAC Hx Pacemaker: No - NEUROLOGICAL Hx Paralysis: No - HEMATOLOGICAL/ONCOLOGICAL Hx Blood Transfusions: No - MUSCULOSKELETAL/RHEUMATOLOGICAL Hx Musculoskeletal Disorders: No - PSYCHIATRIC Hx Emotional Abuse: No Hx Physical Abuse: No Hx Substance Use: No - SURGICAL HISTORY Hx Surgeries: Yes - ANESTHESIA Hx Anesthesia: Yes Hx Anesthesia Reactions: No Hx Malignant Hyperthermia: No Meds Allergies/Adverse Reactions: Allergies Allergy/AdvReac Type Severity Reaction Status Date / Time No Known Allergies Allergy Verified 10/30/15 17:46 - Medications Medications: Current Medications Enoxaparin Sodium (Lovenox) 100 mg SC Q12H LINA; Protocol Last Admin: 07/29/18 10:41 Dose: 100 mg Famotidine (Pepcid) 40 mg PO HS [facility]INA Ceftriaxone Sodium (Rocephin 1 Gram Ivpb) 1 gm in 100 mls @ 100 mls/hr IVPB DAILY [facility]; Protocol Last Admin: 07/29/18 10:42 Dose: 100 mls/hr Azithromycin (Zithromax 500mg In Ns) 500 mg in 250 mls @ 167 mls/hr IVPB DAILY [facility]INA; Protocol Last Admin: 07/29/18 10:42 Dose: 167 mls/hr Sodium Chloride (Sodium Chloride 0.9%) 1,000 mls @ 100 mls/hr IV .Q10H LINA Last Admin: 07/29/18 10:41 Dose: 100 mls/hr Physical Exam - Constitutional Appears: Well, Non-toxic, No Acute Distress - Head Exam Head Exam: ATRAUMATIC, NORMOCEPHALIC - Neurological Exam Neurological exam: Alert, Oriented x3 - Psychiatric Exam Psychiatric exam: Normal Affect, Normal Mood Results - Vital Signs Recent Vital Signs: Last Vital Signs Temp 98.3 F 07/29/18 06:00 Pulse 72 07/29/18 06:00 Resp 18 07/29/18 06:00 BP 146/83 07/29/18 06:00 Pulse Ox 98 07/29/18 06:00 - Labs Result Diagrams: 07/29/18 07:00 07/29/18 07:00 Labs: Laboratory Results - last 24 hr 07/28/18 07/28/18 07/28/18 17:45 17:45 17:45 WBC 12.4 H D RBC 5.55 Hgb 14.2 D Hct 43.3 MCV 78.0 L MCH 25.6 MCHC 32.8 RDW 13.8 Plt Count 271 MPV 9.2 Neut % (Auto) 64.3 Lymph % (Auto) 21.4 L [place] % (Auto) 13.3 H Eos % (Auto) 0.8 L Baso % (Auto) 0.2 Lymph # (Auto) 2.7 [place] # (Auto) 1.6 H Eos # (Auto) 0.1 Baso # (Auto) 0.02 Absolute Neuts (auto) 7.95 H PT 15.0 H INR 1.35 APTT 29.2 D-Dimer, Quantitative 1530 H Sodium 135 Potassium 4.4 Chloride 98 Carbon Dioxide 26 Anion Gap 15 BUN 13 Creatinine 0.7 L Est GFR ( Amer) > 60 Est GFR (Non-Af Amer) > 60 Random Glucose 106 Hemoglobin A1c Calcium 8.8 Phosphorus Magnesium Total Bilirubin 0.7 AST 102 H D ALT 137 H Alkaline Phosphatase 140 H D Troponin I 0.02 D Total Protein 7.8 Albumin 3.8 Globulin 3.9 Albumin/Globulin Ratio 1.0 L Triglycerides Cholesterol LDL Cholesterol Direct HDL Cholesterol Lipase 34 Free T4 TSH 3rd Generation 07/28/18 07/29/18 07/29/18 21:30 01:25 07:00 WBC RBC Hgb Hct MCV MCH MCHC RDW Plt Count MPV Neut % (Auto) Lymph % (Auto) [place] % (Auto) Eos % (Auto) Baso % (Auto) Lymph # (Auto) [place] # (Auto) Eos # (Auto) Baso # (Auto) Absolute Neuts (auto) PT INR APTT D-Dimer, Quantitative Sodium 136 Potassium 4.1 Chloride 102 Carbon Dioxide 26 Anion Gap 12 BUN 17 Creatinine 0.9 Est GFR ( Amer) > 60 Est GFR (Non-Af Amer) > 60 Random Glucose 115 H Hemoglobin A1c Calcium 8.4 Phosphorus 3.7 Magnesium 2.2 Total Bilirubin 0.4 AST 112 H ALT 153 H Alkaline Phosphatase 123 Troponin I < 0.01 D < 0.01 Total Protein 6.9 Albumin 3.4 Globulin 3.5 Albumin/Globulin Ratio 1.0 L Triglycerides 185 H Cholesterol 157 LDL Cholesterol Direct 104 HDL Cholesterol 14 L Lipase Free T4 TSH 3rd Generation 07/29/18 07/29/18 07/29/18 07:00 07:00 07:00 WBC 9.5 D RBC 5.01 Hgb 12.4 L Hct 39.3 L MCV 78.4 L MCH 24.8 L MCHC 31.6 RDW 14.1 Plt Count 252 MPV 8.9 Neut % (Auto) 64.0 Lymph % (Auto) 20.9 L [place] % (Auto) 13.5 H Eos % (Auto) 1.4 L Baso % (Auto) 0.2 Lymph # (Auto) 2.0 [place] # (Auto) 1.3 H Eos # (Auto) 0.1 Baso # (Auto) 0.02 Absolute Neuts (auto) 6.06 PT INR APTT D-Dimer, Quantitative Sodium Potassium Chloride Carbon Dioxide Anion Gap BUN Creatinine Est GFR ( Amer) Est GFR (Non-Af Amer) Random Glucose Hemoglobin A1c 6.1 Calcium Phosphorus Magnesium Total Bilirubin AST ALT Alkaline Phosphatase Troponin I Total Protein Albumin Globulin Albumin/Globulin Ratio Triglycerides Cholesterol LDL Cholesterol Direct HDL Cholesterol Lipase Free T4 TSH 3rd Generation 4.01 07/29/18 08:00 WBC RBC Hgb Hct MCV MCH MCHC RDW Plt Count MPV Neut % (Auto) Lymph % (Auto) [place] % (Auto) Eos % (Auto) Baso % (Auto) Lymph # (Auto) [place] # (Auto) Eos # (Auto) Baso # (Auto) Absolute Neuts (auto) PT INR APTT D-Dimer, Quantitative Sodium Potassium Chloride Carbon Dioxide Anion Gap BUN Creatinine Est GFR ( Amer) Est GFR (Non-Af Amer) Random Glucose Hemoglobin A1c Calcium Phosphorus Magnesium Total Bilirubin AST ALT Alkaline Phosphatase Troponin I Total Protein Albumin Globulin Albumin/Globulin Ratio Triglycerides Cholesterol LDL Cholesterol Direct HDL Cholesterol Lipase Free T4 1.80 TSH 3rd Generation Assessment & Plan - Assessment and Plan (Free Text) Assessment: 43 y/o M with PMHx HTN, palpitations POD6 (07/21) s/p ORIF L 5th metatarsal seen and evaluated with Dr. Blackmon Plan: Patient seen and evaluated with Dr. Blackmon Plan discussed with attending Chart, labs and vitals reviewed- afebrile, absent leukocytosis WBC 9.5 Right Leg US: right iliofemoral DVR Chest CT: (prelim): Evidence of extensive L sided pulmonary emboli as described Patient evalauted by Dr. Montanez, who recommended oral anticoagulants and Lovenox Injection at this time Patient splint removed to the RLE, and dressed with DSD Patient able to perform range of motion exercises while in bed Patient to till remain NWB to the RLE at this time Patient will be transitioned to a boot next week after visit to Dr. Blackmon Podiatry will continue to follow patient while in house - Date & Time Date: 07/29/18 Time: 15:15
[2018-07-29 17:31] LABS: HEPATITIS B SURFACE AG Negative (NEGATIVE)
[2018-07-29 17:37] LABS: HEPATITIS B CORE AB NEGATIVE (NEGATIVE)
[2018-07-29 17:49] LABS: HEPATITIS C ANTIBODY NEGATIVE (NEGATIVE)
[2018-07-29 19:09] LABS: HEPATITIS A IGM See Replicates (NEGATIVE)
--- NOTE | 2018-07-30 00:04 | CON ---
DATE OF CONSULTATION: 07/29/2018 TIME: 02:30 p.m. CHIEF COMPLAINT/HISTORY OF PRESENT ILLNESS: This is a healthy 43-year-old, who fractured the base of his left fifth metatarsal approximately 3 weeks ago. He underwent ORIF with Dr. Janna Blackmon 1 week ago. He presented with left-sided chest pain and shortness of breath. His PE study was positive. He has had a venous ultrasound, which demonstrated significant right iliofemoral DVT. I was asked to evaluate him for thrombolysis. I reviewed his imaging. On physical exam, his upper leg is not particularly swollen or tense. His symptoms have improved on Lovenox injections b.i.d. His foot is warm with no evidence of phlegmasia. RECOMMENDATIONS: At this time, I do not think clinically he needs to undergo catheter-directed TPA. He should be treated with anticoagulation. I would suggest a DOAC as an outpatient for 12-18 months. The extent of the DVT increases the possibility of a postphlebitic syndrome with swelling, chronic skin changes and symptoms in the right lower extremity. He should wear compression stockings and remain active. I discussed the case with Dr. Blackmon and Dr. Mendoza. Herminio Montanez MD MTDD
[2018-07-30] MEDS: Sodium Chloride 0.9% 1,000 ML IV SCH ×2 (01:00→08:49)
--- NOTE | 2018-07-30 02:55 | CON ---
DATE: 07/29/2018 CONSULTATION REPORT HISTORY OF PRESENT ILLNESS: This is a 43-year-old gentleman with history of a fifth metatarsal fracture on the right lower extremity, now postoperative day #8, who presented to [facility] yesterday with complaints of shortness of breath, pleuritic left-sided chest pain with radiation to the left shoulder, severe right leg pain that started about 3 days ago. As was mentioned above, that happened about 4 days after he underwent right lower extremity surgery. These symptoms were associated with diaphoresis. Since his admission to [facility], he reports increased heaviness of the right lower extremity. There were no alleviating factors and the only aggravating factor was deep breathing which increased pleuritic chest pain. The patient denies dizziness, numbness, tingling, nausea, vomiting, constipation, diarrhea, or dysuria. PAST MEDICAL HISTORY: Hypertension, palpitations. ALLERGIES: NKDA. PAST SURGICAL HISTORY: Right fifth metatarsal ORIF. SOCIAL HISTORY: The patient is an active smoker. He smokes about one pack a day for about 20 years. No alcohol or illicit drug abuse. FAMILY HISTORY: Noncontributory. MEDICATIONS: Toprol, HCTZ. REVIEW OF SYSTEMS: Review of 12-organ system other than that mentioned in the history of present illness is negative. PHYSICAL EXAMINATION: VITAL SIGNS: Temperature 98.3, blood pressure 146/83, respiratory rate 18, oxygen saturation 98% on room air. HEENT: Head and neck atraumatic. LUNGS: Few rhonchi bilaterally. HEART: Regular rate and rhythm. S1, S2 normal. ABDOMEN: Soft, nontender, nondistended. MUSCULOSKELETAL: There is a cast in the right lower extremity (foot). Right lower extremity is swollen asymmetrically more than the left. Left, no swelling observed. The right thigh is slightly tender on palpation and slightly bigger than the left one. Right extremity warm. The patient does not have any paresthesia or numbness in the right lower extremity; however, it appears that when he wants to lift it, it is heavier than the left one. Dopplerable pulse on the right popliteal artery. There is a cast over the right foot. SKIN: Moist. PSYCHIATRIC: The patient is alert, awake, and oriented x3. LABORATORY DATA: WBC 9.5, hemoglobin 12.4, platelet count 252. Sodium 136, potassium 4.1, chloride 102, carbon dioxide 26, BUN 17, creatinine 0.9, glucose 115, AST 112, ALT 153, total bilirubin 0.4, troponin less than 0.01. Echocardiogram performed today showed a normal ejection fraction at 58.7%. There is normal right ventricular wall thickness. The right fact ventricular systolic function is normal. The left atrium size is normal. The right atrium size is normal. Left ventricular diastolic function is normal. No evidence of pulmonary hypertension. Chest CT showed large emboli in the left lower lobe pulmonary artery, smaller emboli are seen in the upper lobes bilaterally. There is consolidation in the left lower lobe, there is in the distribution of the left lower lobe pulmonary emboli and may represent a pulmonary infarct. Extremity ultrasound showed extensive right iliofemoral deep venous thrombosis. The thrombus extends into the right external iliac vein. Abdominal ultrasound showed an unremarkable inferior vena cavum. ASSESSMENT AND PLAN: This is a 43-year-old gentleman who presented with an VTE/pulmonary emboli/deep venous thrombosis in the right lower extremity which is fairly extensive in the iliofemoral segment, most likely related to recent surgery on the fifth metatarsal bone with a subsequent cast placement. The patient was evaluated by interventional radiology (Dr. Montanez) to decide whether or not the patient might need catheter directed thrombolysis of the affected segment of the venous bed. I spoke with Dr. Montanez, who evaluated patient at bedside--> he thinks that therapeutic anticoagulation alone at the present time will suffice. We will get a linen aide on board. The patient will need therapeutic anticoagulation anticoagulation for at least three to six months as it is related to easily identifiable igniting event. There are, however, no signs of right ventricular strain on the echocardiogram. The patient's troponin x2 were negative. I will order a CPK. ccm time 40 min Roscoe Ken MD LIZZETH
[2018-07-30 06:47] LABS: BASO # 0.03 K/mm3 (0.0-2.0); BASO % 0.3 % (0.0-3.0); EOS # 0.2 (0.0-0.7); EOS % 1.6 % (1.5-5.0); HEMOGLOBIN 12.5 g/dL (14.0-18.0); LYMPH # 2.6 (1.2-3.4); LYMPH % 28.1 % (22.0-35.0); MEAN CORPUSCULAR HEMOGLOBIN 24.8 pg (25.0-35.0); MEAN CORPUSCULAR HGB CONC 31.8 g/dl (31.0-37.0); MONO # 1.1 (0.1-0.6); MONO % 11.5 % (1.0-6.0); RBC 5.04 10^6/uL (3.5-6.1); WHITE BLOOD COUNT 9.4 10^3/uL (4.5-11.0)
[2018-07-30 07:25] LABS: ALB/GLOB RATIO 0.9 (1.1-1.8); ALBUMIN 3.4 g/dL (3.0-4.8); ALT/SGPT 232 U/L (7-56); AST/SGOT 141 U/L (17-59); BLOOD UREA NITROGEN 13 mg/dL (7-21); CALCIUM 8.4 mg/dL (8.4-10.5); GFR NON-AFRICAN AMERICAN > 60
[2018-07-30] MEDS: Enoxaparin 100 mg Syringe SC SCH (10:38)
--- NOTE | 2018-07-30 11:43 | CP.PCM.PN ---
<Gustavo Nielsen - Last Filed: 07/30/18 12:10> Subjective - Date & Time of Evaluation Date of Evaluation: 07/30/18 Time of Evaluation: 08:30 - Subjective Subjective: INTERNAL MEDICINE PROGRESS NOTE FOR DR. MANUEL Nielsen PGY1 Pt seen and examined at bedside this am. No acute events overnight. Pt continues to report pain with deep inspiration and with cough. He is tolerating his diet. Pain has been controlled. He otherwise denies ROS Objective - Vital Signs/Intake and Output Vital Signs (last 24 hours): Temp Pulse Resp BP Pulse Ox 99.4 F 93 H 16 128/80 96 07/30/18 06:00 07/30/18 06:00 07/30/18 06:00 07/30/18 06:00 07/30/18 06:00 Intake and Output: 07/30/18 07/30/18 06:59 18:59 Intake Total 600 Output Total 2260 Balance -1660 - Medications Medications: Current Medications Enoxaparin Sodium (Lovenox) 100 mg SC Q12H [facility]; Protocol Last Admin: 07/30/18 10:38 Dose: 100 mg Famotidine (Pepcid) 40 mg PO HS [facility] Last Admin: 07/29/18 22:11 Dose: 40 mg - Labs Labs: 07/30/18 06:00 07/30/18 06:00 PT 15.0 SECONDS (9.4-12.5) H 07/28/18 17:45 INR 1.35 07/28/18 17:45 APTT 29.2 Seconds (26.9-38.3) 07/28/18 17:45 - Constitutional Appears: Non-toxic, In Acute Distress - Head Exam Head Exam: NORMAL INSPECTION, NORMOCEPHALIC - Eye Exam Eye Exam: EOMI, Normal appearance - ENT Exam ENT Exam: Mucous Membranes Moist, Normal Exam - Neck Exam Neck exam: Positive for: Normal Inspection - Respiratory Exam Respiratory Exam: Clear to Auscultation Bilateral, NORMAL BREATHING PATTERN. absent: Rales - Cardiovascular Exam Cardiovascular Exam: Tachycardia, +S1, +S2 - GI/Abdominal Exam GI & Abdominal Exam: Soft - Extremities Exam Additional comments: R thigh tenderness Dressing noted over R foot - Back Exam Back exam: NORMAL INSPECTION - Neurological Exam Neurological exam: Alert, Oriented x3 - Psychiatric Exam Psychiatric exam: Normal Affect, Normal Mood - Skin Skin Exam: Dry, Intact, Warm Assessment and Plan - Assessment and Plan (Free Text) Assessment: 43 y/o M with PMH of HTN, "palpitations", s/p R 5th metatarsal ORIF presenting with chest pain, shortness of breath, diaphoresis. Pt found to have extensive DVT & PE, started on therapeutic lovenox Plan: Pulmonary Embolism Pt s/p R metatarsal surgery, R thigh tenderness Wells score: 9. D-Dimer 1530 CTA 07/28: Large emboli are seen in the left lower lobe pulmonary artery. Smaller emboli are seen in the upper lobes bilaterally. The right ventricle is dilated consistent with right ventricular strain.There consolidation in the left lower lobe. This is in the distribution of the left lower lobe pulmonary emboli and may represent a pulmonary infarct B/L LE duplex 07/28 (prelim): Extensive right iliofemoral DVT as described above. The thrombus extends into the right external iliac vein. The patient should have a CT scan of the chest abdomen and pelvis with IV contrast to evaluate the IVC and iliac veins. If clinically indicated, the patient should be evaluated for possible catheter-directed venous thrombolysis EKG: Sinus Tachycardia @ 102 BPM. LVH present. No ST elevations. Continue lovenox at 1mg/kg Q12h. 100mg SC Will need anticoagulation for 12-18 months. Per IR, no plans for localized thrombolysis/thrombolectomy Will start compression socks and request pt to stay active Heme/Onc consulted for initial of DOAC with f/u Monitor CBC Sepsis 2/2 pneumonia Resolved. Remains afebrile, normotensive. Leukocytosis resolved. Procalcitonin wnl. cultures have been negative d/c fluids/antibiotics s/p R 5th metatarsal ORIF dressing in place Podiatry following Pt will transitioned to boot with Podiatry Transaminitis Abdomen U/S (07/29): Hepatic steatosis noted without focal mass or intrahepatic biliary duct dilatation. [id number] hepatomegaly suggested. Body of pancreas is unremarkable with the remainder obscured by overlying bowel gas. Hepatitis panel pending DVT/GI: Lovenox/Pepcid Pt to follow up with PMD, Dr. Garcia Case reviewed with attending physician, Dr. Manuel Nielsen PGY1 <Sarah Jackson R - Last Filed: 07/31/18 07:58> Objective - Vital Signs/Intake and Output Vital Signs (last 24 hours): Temp Pulse Resp BP Pulse Ox 99 F 84 18 122/83 96 07/31/18 06:00 07/31/18 06:00 07/31/18 06:00 07/31/18 06:00 07/31/18 06:00 Intake and Output: 07/31/18 07/31/18 06:59 18:59 Intake Total 360 Output Total 1000 Balance -640 - Medications Medications: Current Medications Apixaban (Eliquis) 10 mg PO BID [facility]; Protocol Stop: 08/06/18 18:01 Last Admin: 07/30/18 17:55 Dose: 10 mg Famotidine (Pepcid) 40 mg PO HS [facility] Last Admin: 07/30/18 21:59 Dose: 40 mg - Labs Labs: 07/31/18 07:10 07/30/18 06:00 PT 15.0 SECONDS (9.4-12.5) H 07/28/18 17:45 INR 1.35 07/28/18 17:45 APTT 29.2 Seconds (26.9-38.3) 07/28/18 17:45 Attending/Attestation - Attestation I have personally seen and examined this patient.: Yes I have fully participated in the care of the patient.: Yes I have reviewed all pertinent clinical information, including history, physical exam and plan: Yes Notes (Text): Patient seen and examined by me with resident at approximately 11:10AM on 07/30/18. Case including HPI, physical exam, and assessment and plan discussed with resident. Agree with above with following additions/corrections. Patient is a 43-year-old male past medical history significant for hypertension, palpitations, and status post ORIF of the right foot fifth metatarsal on 07/22/2018 that presented to the emergency room with shortness of breath, left- sided chest pain with radiation to the left shoulder, and right leg pain for 3 days. Patient states he is feeling ok. States he is still having pain in his right lower extremity worsened with ambulation. Patient also still with chest pain with deep breaths and coughing. No palpitations. No nausea, vomiting, or abdom inal pain. No headaches or dizziness. No fevers or chills. No dysuria. Physical exam: General: Awake and alert sitting up in bed in no acute distress HEENT: Normocephalic, atraumatic. Extraocular muscles intact. Pupils equal and reactive, no scleral icterus. Oropharynx pink and moist. No pharyngeal erythema or exudate appreciated. Neck supple. Cardiovascular: Regular rhythm. Normal S1 and S2. No murmurs, rubs, or gallops appreciated Pulmonary: Normal respiratory effort. Decreased breath sounds (difficult for patient to take in deep breath). No rhonchi, rales, or wheezing appreciated Gastrointestinal: Soft, nondistended. Nontender. Positive bowel sounds all 4 quadrants. No guarding. Musculoskeletal: Moves all extremities. Right lower extremity dressing clean, dry, and intact. Positive edema right lower extremity. No edema or calf tenderness left extremity. Central nervous system: AAO x3. No focal deficits appreciated. Dermatologic: Skin warm and dry. Assessment and plan: Patient is a 43-year-old male past medical history significant for hypertension, palpitations, and status post ORIF of the right foot fifth metatarsal on 07/22/2018 that presented to the emergency room with sh ortness of breath, left-sided chest pain with radiation to the left shoulder, and right leg pain for 3 days. 1. Chest pain secondary to Pulmonary emboli. Right lower extremity pain secondary to DVT. Likely provoked secondary to immobility secondary to recent surgery. Continue therapeutic lovenox. Hem/onc consulted for DOAC recommendations. IR recommendations appreciated, no plan for thrombolysis /thrombectomy. Pulmonary recommendations appreciated. 2D echo per school speech language pathologist showed normal chamber size, EF 55-60%, trace MR/TR/AR/PI, no evidence dilated RV or pulmonary hypertension. CTA chest per radiology showed large emboli are seen in the left upper lobe pulmonary artery; smaller emboli are seen in the upper lobes bilaterally; the right ventricle is dilated consistent with right ventricular strain; there is consolidation in the left lower lobe, this is in the distribution of the left lower lobe pulmonary emboli and may represent a pulmonary infarct. Bilateral venous Dopplers per radiologist's showed extensive right iliofemoral DVT, the thrombus extends into the right external iliac vein. 2. Questionable pneumonia. Unlikely. Afebrile. Blood cultures with no growth. Procalcitonin 0.20. Leukocytosis resolved. Antibiotics stopped. 3. Transaminitis. CPK within normal limits. Hepatitis panel negative. Abdominal ultrasound per radiologist showed hepatic steatosis noted without focal mass or intrahepatic biliary duct dilatation; mild to moderate hepatomegaly suggested; body pancreas is unremarkable with the remainder of scared by overlying bowel gas. Patient is aware of ultrasound results and understands he will need further work up and follow up with a gas pumper as an outpatient. 4. S/P ORIF of the right foot fifth metatarsal on 07/22/2018. Podiatry consulted. Dressing in place. 5. GI/DVT prophylaxis. Pepcid/Lovenox Case was discussed in detail with the patient regarding current diagnosis and treatment plan. All questions answered.
--- NOTE | 2018-07-30 12:59 | CP.PCM.PN ---
Subjective - Date & Time of Evaluation Date of Evaluation: 07/30/18 Time of Evaluation: 12:52 - Subjective Subjective: Podiatry Progress note for Dr. Herminio Blackmon, 43 y/o POD8 (07/21) s/p ORIF L 5th metatarsal seen and evaluated at bedside. Patient denies any acute overnight complaints. Patient reports the pain in right leg has mildly improved. Patient still complaining of shortness of breath with deep inspiration, however, states it has decreased. Patient tolerating diet. No other complaints noted Objective - Vital Signs/Intake and Output Vital Signs (last 24 hours): Temp Pulse Resp BP Pulse Ox 99.4 F 93 H 16 128/80 96 07/30/18 06:00 07/30/18 06:00 07/30/18 06:00 07/30/18 06:00 07/30/18 06:00 Intake and Output: 07/30/18 07/30/18 06:59 18:59 Intake Total 600 Output Total 2260 Balance -1660 - Medications Medications: Current Medications Enoxaparin Sodium (Lovenox) 100 mg SC Q12H [facility]; Protocol Last Admin: 07/30/18 10:38 Dose: 100 mg Famotidine (Pepcid) 40 mg PO HS [facility] Last Admin: 07/29/18 22:11 Dose: 40 mg - Labs Labs: 07/30/18 06:00 07/30/18 06:00 PT 15.0 SECONDS (9.4-12.5) H 07/28/18 17:45 INR 1.35 07/28/18 17:45 APTT 29.2 Seconds (26.9-38.3) 07/28/18 17:45 - Constitutional Appears: Well, Non-toxic, No Acute Distress - Head Exam Head Exam: ATRAUMATIC, NORMOCEPHALIC - Extremities Exam Additional comments: Dressing clean dry and intact - Neurological Exam Neurological Exam: Alert, Awake, Oriented x3 - Psychiatric Exam Psychiatric exam: Normal Affect, Normal Mood Assessment and Plan - Assessment and Plan (Free Text) Assessment: 43 y/o M with PMH of HTN, "palpitations", s/p R 5th metatarsal ORIF presenting with chest pain, shortness of breath, diaphoresis. Pt found to have extensive DVT & PE, started on therapeutic lovenox Plan: Patient seen and evaluated Plan discussed with attending Chart, labs and vitals reviewed- afebrile, absent leukocytosis WBC 9.5 Right Leg US: right iliofemoral DVR Chest CT: (prelim): Evidence of extensive L sided pulmonary emboli as described Patient evaluated by Dr. Montanez, who recommended oral anticoagulants and Lovenox Injection at this time Patient able to perform range of motion exercises while in bed Patient will be transitioned to a CAMboot next week after visit to Dr. Blackmon Podiatry will continue to follow patient while in house
--- NOTE | 2018-07-30 14:54 | CP.PCM.PN ---
Subjective - Date & Time of Evaluation Date of Evaluation: 07/30/18 Time of Evaluation: 14:52 - Subjective Subjective: Patient seen and examined. Denies CP, SOB, palpitations. Objective - Vital Signs/Intake and Output Vital Signs (last 24 hours): Temp Pulse Resp BP Pulse Ox 98.7 F 77 20 129/84 96 07/30/18 14:00 07/30/18 14:00 07/30/18 14:00 07/30/18 14:00 07/30/18 14:00 Intake and Output: 07/30/18 07/30/18 06:59 18:59 Intake Total 600 Output Total 2260 Balance -1660 - Medications Medications: Current Medications Enoxaparin Sodium (Lovenox) 100 mg SC Q12H [facility]; Protocol Last Admin: 07/30/18 10:38 Dose: 100 mg Famotidine (Pepcid) 40 mg PO HS [facility] Last Admin: 07/29/18 22:11 Dose: 40 mg - Labs Labs: 07/30/18 06:00 07/30/18 06:00 PT 15.0 SECONDS (9.4-12.5) H 07/28/18 17:45 INR 1.35 07/28/18 17:45 APTT 29.2 Seconds (26.9-38.3) 07/28/18 17:45 - Constitutional Appears: Non-toxic, No Acute Distress - Head Exam Head Exam: NORMAL INSPECTION - Eye Exam Eye Exam: Normal appearance - ENT Exam ENT Exam: Mucous Membranes Moist - Respiratory Exam Respiratory Exam: Clear to Ausculation Bilateral, NORMAL BREATHING PATTERN - Cardiovascular Exam Cardiovascular Exam: REGULAR RHYTHM, +S1, +S2 - GI/Abdominal Exam GI & Abdominal Exam: Soft, Normal Bowel Sounds - Neurological Exam Neurological Exam: Alert, Awake, Oriented x3 - Skin Skin Exam: Normal Color, Warm Assessment and Plan - Assessment and Plan (Free Text) Assessment: Patient is 43yo M with PMH of HTN, "s/p R 5th metatarsal ORIF a/w chest pain, shortness of breath, found to have extensive DVT & PE, started on therapeutic lovenox - currently afebrile, HD stable, comfortable in NAD, doing well - no plans for IR procedure, catheter directed thrombolysis - CPK wnl - denies CP, SOB - would consider switch to DOAC from Lovenox, for period of at least 3-6 months - follow up Heme
[2018-07-31 07:43] LABS: BASO # 0.02 K/mm3 (0.0-2.0); BASO % 0.2 % (0.0-3.0); EOS # 0.3 (0.0-0.7); EOS % 2.5 % (1.5-5.0); HEMOGLOBIN 13.1 g/dL (14.0-18.0); LYMPH # 2.3 (1.2-3.4); MEAN CELL VOLUME 78.6 fl (80.0-105.0); MEAN CORPUSCULAR HEMOGLOBIN 24.9 pg (25.0-35.0); MEAN CORPUSCULAR HGB CONC 31.6 g/dl (31.0-37.0); MONO % 9.6 % (1.0-6.0); RBC 5.27 10^6/uL (3.5-6.1); RED CELL DISTRIBUTION WIDTH 14.1 % (11.5-14.5); WHITE BLOOD COUNT 9.9 10^3/uL (4.5-11.0)
[2018-07-31 08:08] LABS: ALB/GLOB RATIO 0.9 (1.1-1.8); ALBUMIN 3.6 g/dL (3.0-4.8); ALT/SGPT 247 U/L (7-56); AST/SGOT 127 U/L (17-59); BLOOD UREA NITROGEN 19 mg/dL (7-21); CALCIUM 8.7 mg/dL (8.4-10.5); GFR NON-AFRICAN AMERICAN > 60
--- NOTE | 2018-07-31 09:07 | CON ---
DATE: 07/30/2018 CONSULT REQUESTED BY: Dr. Jackson. REASON FOR CONSULTATION: DVT and pulmonary embolism. HISTORY OF PRESENT ILLNESS: Mr. Nails had an injury to the right foot and underwent ORIF left fifth metatarsal recently. He presented to the ED with shortness of breath, left-sided chest pain, radiation to the left shoulder, pain in the right leg and increasing swelling. Doppler of lower extremity showed occlusive thrombosis extensive in the right femoral vein and illiac vein. He also had a ultrasound of the abdomen to evaluate for extension of the DVT from iliac vein which was negative. CAT scan of the chest showed large emboli in left lower lobe pulmonary artery, consolidation in the left lower lobe, right ventricle dilated, smaller emboli in the upper lobes bilaterally. He has been on heparin drip since the hospitalization. 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 No family history of DVT. No prior history of DVT. PAST MEDICAL HISTORY: Hypertension and palpitation. ALLERGIES: NO KNOWN DRUG ALLERGIES. PAST SURGICAL HISTORY: Recent fifth metatarsal ORIF. PERSONAL HISTORY: Smokes 1 pack a day for 20 years. No history of alcohol abuse. Mother of CVA and father of [place]. MEDICATIONS: Toprol and hydrochlorothiazide. His PCP is Dr. Garcia. REVIEW OF SYSTEMS: As per HPI. Rest of 12-point review of systems reviewed negative. PHYSICAL EXAMINATION: GENERAL: Comfortable in bed, in no acute distress. VITAL SIGNS: Temperature 98.7, heart rate 80 per minute and blood pressure 120/70. HEENT: No pallor. NECK: No lymphadenopathy. CHEST: Air entry decreased on the left side. S1 and S2, normal. No murmur. No gallop. ABDOMINAL: Soft and nontender. No hepatosplenomegaly. EXTREMITIES: Right leg edema. Foot is in dressing. NEURO: Alert and oriented x3. No focal sensory motor deficits. LABORATORY DATA: White count 12.4, hemoglobin 14.2, hematocrit 43.3 and platelet 271. Sodium 135, potassium 4.4, BUN 13, creatinine 0.7 and glucose 106. MEDICATIONS: Currently on heparin drip with therapeutic PTT and Pepcid 40 mg at bedtime. ASSESSMENT: 1. Right iliofemoral deep venous thrombosis. 2. Bilateral pulmonary embolism. 3. Possible hypercoagulable state. 4. Hypertension. PLAN: He is currently on heparin drip. We will transition to Eliquis 10 mg p.o. t.i.d. for 7 days and then 5 mg p.o. b.i.d. I advised him to followup with Dr. Garcia his PCP. He will need hypercoagulable workup and followup with the [facility]. Discussed with Dr. Verma, she will contact with Dr. Garcia for followup and appropriate referral to [facility] in network with his insurance. Discussed with the patient at length. Discussed the risk of anticoagulation with Eliquis including life threatening bleeding. Also discussed with him the compliance and close followup with [facility]. He demonstrated understanding discussion well. Thank you, Dr. Jackson for allowing us to participate in Mr. Nails's care. Selam Luciano MD MTDGurinder
[2018-07-31 11:32] LABS: GAMMA GLUTAMYL TRANSPEPTIDASE 199 U/L (8-78)
--- NOTE | 2018-07-31 15:28 | CP.PCM.PCO ---
Physician Communication Note - Physician Communication Note Physician Communication Note: As per Dr. Blackmon, patient to be NWB with crutches until office visit
--- NOTE | 2018-07-31 15:59 | CP.PCM.CON ---
<Jackie Snell - Last Filed: 07/31/18 16:00> History of Present Illness - History of Present Illness History of Present Illness: Gastroenterology Fellow/PGY6 Consult Note 43 year old male with PMH of HTN, Obesity, tobacco abuse, and recent right fifth metatarsal fracture due to fall s/p closed reduction(07/21/18) presenting with shortness of breath and chest pain. Active treatment of acute left lower lobe PE and right leg DVT on Eliquis. GI consultation for elevated LFTs. Patient taking ibuprofen two to three times a monthly for generalized pains. Denies herbals/natural remedy use, alcohol use, sick contacts, recent travel, nausea, vomiting, abdominal pain/distension, heartburn, diarrhea, constipation, melena, hematochezia, confusion, altered sleep/wake cycles, leg selling, or unint entional weight loss. Prior EGD 12/2015 showed small hiatal hernia, normal duodenal biopsies, and H. pylori positive gastritis s/op therapy with confirmed eradication on breath testing per patient. No prior colonoscopy. Family History- denies liver disease, stomach cancer, colon cancer Social History- 20 pack years; denies alcohol or illicit drug use Surgical History-07/21/18 right fifth metatarsal fracture s/p closed reduction with percutaneous pinning Review of Systems - Review of Systems Review of Systems: 12-point review of systems negative except for as above Past Patient History - Tetanus Immunizations Tetanus Immunization: Unknown, Up to Date - Past Social History Smoking Status: Heavy Smoker > 10 Cigarettes Daily - CARDIAC Hx Pacemaker: No - NEUROLOGICAL Hx Paralysis: No - HEMATOLOGICAL/ONCOLOGICAL Hx Blood Transfusions: No - MUSCULOSKELETAL/RHEUMATOLOGICAL Hx Musculoskeletal Disorders: No - PSYCHIATRIC Hx Emotional Abuse: No Hx Physical Abuse: No Hx Substance Use: No - SURGICAL HISTORY Hx Surgeries: Yes - ANESTHESIA Hx Anesthesia: Yes Hx Anesthesia Reactions: No Hx Malignant Hyperthermia: No Meds Allergies/Adverse Reactions: Allergies Allergy/AdvReac Type Severity Reaction Status Date / Time No Known Allergies Allergy Verified 10/30/15 17:46 - Medications Medications: Current Medications Apixaban (Eliquis) 10 mg PO BID [facility]; Protocol Stop: 08/06/18 18:01 Last Admin: 07/31/18 10:57 Dose: 10 mg Famotidine (Pepcid) 40 mg PO HS [facility] Last Admin: 07/30/18 21:59 Dose: 40 mg Physical Exam - Constitutional Appears: Non-toxic, No Acute Distress - Head Exam Head Exam: ATRAUMATIC, NORMOCEPHALIC - Eye Exam Eye Exam: EOMI, PERRL. absent: Scleral icterus Pupil Exam: PERRL. absent: Miosis, Mydriatic - ENT Exam ENT Exam: Mucous Membranes Moist, Normal Oropharynx - Neck Exam Neck exam: Positive for: Full Rom, Normal Inspection - Respiratory Exam Respiratory Exam: Clear to Auscultation Bilateral. absent: Rales, Rhonchi, Wheezes - Cardiovascular Exam Cardiovascular Exam: RRR, +S1, +S2. absent: Gallop, Rubs - GI/Abdominal Exam GI & Abdominal Exam: Normal Bowel Sounds, Organomegaly, Soft. absent: Distended, Firm, Guarding, Rigid, Tenderness - Extremities Exam Additional comments: right foot bandage in place - Neurological Exam Neurological exam: Alert - Psychiatric Exam Psychiatric exam: Normal Affect, Normal Mood - Skin Skin Exam: Dry, Intact, Normal Color, Warm Results - Vital Signs Recent Vital Signs: Last Vital Signs Temp 98.9 F 07/31/18 14:00 Pulse 89 07/31/18 14:00 Resp 18 07/31/18 14:00 BP 128/82 07/31/18 14:00 Pulse Ox 96 07/31/18 14:00 - Labs Result Diagrams: 07/31/18 07:10 07/31/18 07:10 Labs: Laboratory Results - last 24 hr 07/31/18 07/31/18 07/31/18 07:10 07:10 09:39 WBC 9.9 RBC 5.27 Hgb 13.1 L Hct 41.4 L MCV 78.6 L MCH 24.9 L MCHC 31.6 RDW 14.1 Plt Count 337 MPV 9.0 Neut % (Auto) 64.7 Lymph % (Auto) 23.0 [place] % (Auto) 9.6 H Eos % (Auto) 2.5 Baso % (Auto) 0.2 Lymph # (Auto) 2.3 [place] # (Auto) 1.0 H Eos # (Auto) 0.3 Baso # (Auto) 0.02 Absolute Neuts (auto) 6.41 Retic Count Sodium 136 Potassium 4.1 Chloride 103 Carbon Dioxide 23 Anion Gap 14 BUN 19 Creatinine 0.8 Est GFR ( Amer) > 60 Est GFR (Non-Af Amer) > 60 Random Glucose 101 Calcium 8.7 Phosphorus 4.1 Magnesium 2.2 Total Bilirubin 0.4 GGT 199 H AST 127 H ALT 247 H Alkaline Phosphatase 154 H Lactate Dehydrogenase 977 H Total Protein 7.4 Albumin 3.6 Globulin 3.8 Albumin/Globulin Ratio 0.9 L 07/31/18 09:40 WBC RBC Hgb Hct MCV MCH MCHC RDW Plt Count MPV Neut % (Auto) Lymph % (Auto) [place] % (Auto) Eos % (Auto) Baso % (Auto) Lymph # (Auto) [place] # (Auto) Eos # (Auto) Baso # (Auto) Absolute Neuts (auto) Retic Count 0.99 Sodium Potassium Chloride Carbon Dioxide Anion Gap BUN Creatinine Est GFR ( Amer) Est GFR (Non-Af Amer) Random Glucose Calcium Phosphorus Magnesium Total Bilirubin GGT AST ALT Alkaline Phosphatase Lactate Dehydrogenase Total Protein Albumin Globulin Albumin/Globulin Ratio Assessment & Plan - Assessment and Plan (Free Text) Assessment: 43 year old male with PMH of HTN, Obesity, tobacco abuse, and recent right fifth metatarsal fracture due to fall s/p closed reduction(07/21/18) presenting with shortness of breath and chest pain. Active treatment of acute left lower lobe pulmonary embolism and right lower extremity DVT on Eliquis. GI consultation for elevated LFTs. Prior EGD 12/2015 showed small hiatal hernia, normal duodenal biopsies, and H. pylori positive gastritis s/op therapy with confirmed eradication on breath testing per patient. No prior colonoscopy. Plan: -on record review- normal LFTs 2014 to 07/21/18 -acute elevation of transaminases on 07/28 -suspicious for drug-induced liver injury -07/21- received cefazolin -received ceftriaxone and azithromycin on admission 07/28 for concern of pneumonia after lab draw -consideration for elevation in setting of acute PE/DVT with right ventricular strain -U/S-steatosis, no gallstones or dilatation, patent portal vein -normal CK 83 and Hepattis panel -ordered drug screen, acetaminophen, salicylate, LDH, autoimmune serologies -monitor LFT trend -will follow clinical course <Hernandez Franklin - Last Filed: 07/31/18 19:05> Meds - Medications Medications: Current Medications Apixaban (Eliquis) 10 mg PO BID [facility]; Protocol Stop: 08/06/18 18:01 Last Admin: 07/31/18 17:19 Dose: 10 mg Famotidine (Pepcid) 40 mg PO HS [facility] Last Admin: 07/30/18 21:59 Dose: 40 mg Results - Vital Signs Recent Vital Signs: Last Vital Signs Temp 98.9 F 07/31/18 14:00 Pulse 89 07/31/18 14:00 Resp 18 07/31/18 14:00 BP 128/82 07/31/18 14:00 Pulse Ox 96 07/31/18 14:00 - Labs Result Diagrams: 07/31/18 07:10 07/31/18 07:10 Labs: Laboratory Results - last 24 hr 07/31/18 07/31/18 07/31/18 07:10 07:10 09:38 WBC 9.9 RBC 5.27 Hgb 13.1 L Hct 41.4 L MCV 78.6 L MCH 24.9 L MCHC 31.6 RDW 14.1 Plt Count 337 MPV 9.0 Neut % (Auto) 64.7 Lymph % (Auto) 23.0 [place] % (Auto) 9.6 H Eos % (Auto) 2.5 Baso % (Auto) 0.2 Lymph # (Auto) 2.3 [place] # (Auto) 1.0 H Eos # (Auto) 0.3 Baso # (Auto) 0.02 Absolute Neuts (auto) 6.41 Retic Count Haptoglobin 405.1 H Sodium 136 Potassium 4.1 Chloride 103 Carbon Dioxide 23 Anion Gap 14 BUN 19 Creatinine 0.8 Est GFR ( Amer) > 60 Est GFR (Non-Af Amer) > 60 Random Glucose 101 Calcium 8.7 Phosphorus 4.1 Magnesium 2.2 Iron TIBC % Saturation Total Bilirubin 0.4 GGT AST 127 H ALT 247 H Alkaline Phosphatase 154 H Lactate Dehydrogenase Total Protein 7.4 Albumin 3.6 Globulin 3.8 Albumin/Globulin Ratio 0.9 L Urine Color Urine Appearance Urine pH Ur Specific [place] Urine Protein Urine Glucose (UA) Urine Ketones Urine Blood Urine Nitrate Urine Bilirubin Urine Urobilinogen Ur Leukocyte Esterase Salicylates Acetaminophen 07/31/18 07/31/18 07/31/18 09:39 09:40 16:00 WBC RBC Hgb Hct MCV MCH MCHC RDW Plt Count MPV Neut % (Auto) Lymph % (Auto) [place] % (Auto) Eos % (Auto) Baso % (Auto) Lymph # (Auto) [place] # (Auto) Eos # (Auto) Baso # (Auto) Absolute Neuts (auto) Retic Count 0.99 Haptoglobin Sodium Potassium Chloride Carbon Dioxide Anion Gap BUN Creatinine Est GFR ( Amer) Est GFR (Non-Af Amer) Random Glucose Calcium Phosphorus Magnesium Iron 23 L TIBC 264 % Saturation 9 L Total Bilirubin GGT 199 H AST ALT Alkaline Phosphatase Lactate Dehydrogenase 977 H Total Protein Albumin Globulin Albumin/Globulin Ratio Urine Color Urine Appearance Urine pH Ur Specific [place] Urine Protein Urine Glucose (UA) Urine Ketones Urine Blood Urine Nitrate Urine Bilirubin Urine Urobilinogen Ur Leukocyte Esterase Salicylates Acetaminophen 07/31/18 07/31/18 16:00 17:40 WBC RBC Hgb Hct MCV MCH MCHC RDW Plt Count MPV Neut % (Auto) Lymph % (Auto) [place] % (Auto) Eos % (Auto) Baso % (Auto) Lymph # (Auto) [place] # (Auto) Eos # (Auto) Baso # (Auto) Absolute Neuts (auto) Retic Count Haptoglobin Sodium Potassium Chloride Carbon Dioxide Anion Gap BUN Creatinine Est GFR ( Amer) Est GFR (Non-Af Amer) Random Glucose Calcium Phosphorus Magnesium Iron TIBC % Saturation Total Bilirubin GGT AST ALT Alkaline Phosphatase Lactate Dehydrogenase Total Protein Albumin Globulin Albumin/Globulin Ratio Urine Color Yellow Urine Appearance Clear Urine pH 6.0 Ur Specific [place] 1.025 Urine Protein Negative Urine Glucose (UA) Negative Urine Ketones Negative Urine Blood Negative Urine Nitrate Negative Urine Bilirubin Negative Urine Urobilinogen 0.2 Ur Leukocyte Esterase Negative Salicylates < 1 L Acetaminophen < 10.0 L Attending/Attestation - Attestation I have fully participated in the care of the patient.: Yes I have reviewed all pertinent clinical information: Yes Notes (Text): 07/31/18 19:03 HTN Obesity DVT/PE on eliquis Transaminitis - viral hepatitis panel negative - Diet as tolerated - Given acute rise in LFTs, differential includes drug induced injury vs vascular compromise - Obtain abdominal US with duplex - Obtain autoimmune serologies and drug screen - Will continue to monitor patient clinical course
[2018-07-31 16:37] LABS: IRON 23 ug/dL (45-180)
[2018-07-31 16:39] LABS: ACETAMINOPHEN < 10.0 ug/ml (10.0-20.0); SALICYLATE < 1 mg/dL (2.0-20.0)
[2018-07-31 16:46] LABS: % IRON SATURATION 9 % (20-55); TOTAL IRON BINDING CAPACITY 264 ug/dL (261-462)
--- NOTE | 2018-07-31 17:25 | CP.PCM.PN ---
<Gustavo Nielsen - Last Filed: 07/31/18 17:21> Subjective - Date & Time of Evaluation Date of Evaluation: 07/31/18 Time of Evaluation: 08:30 - Subjective Subjective: INTERNAL MEDICINE PROGRESS NOTE FOR DR. MANUEL Nielsen PGY1 Pt seen and examined at bedside. Pt tolerating diet. Does not have michael stockings on. Reports similar pain that he presented with. Otherwise denies ROS Objective - Vital Signs/Intake and Output Vital Signs (last 24 hours): Temp Pulse Resp BP Pulse Ox 98.9 F 89 18 128/82 96 07/31/18 14:00 07/31/18 14:00 07/31/18 14:00 07/31/18 14:00 07/31/18 14:00 Intake and Output: 07/31/18 07/31/18 06:59 18:59 Intake Total 360 Output Total 1000 Balance -640 - Medications Medications: Current Medications Apixaban (Eliquis) 10 mg PO BID [facility]; Protocol Stop: 08/06/18 18:01 Last Admin: 07/31/18 17:19 Dose: 10 mg Famotidine (Pepcid) 40 mg PO HS [facility] Last Admin: 07/30/18 21:59 Dose: 40 mg - Labs Labs: 07/31/18 07:10 07/31/18 07:10 PT 15.0 SECONDS (9.4-12.5) H 07/28/18 17:45 INR 1.35 07/28/18 17:45 APTT 29.2 Seconds (26.9-38.3) 07/28/18 17:45 - Constitutional Appears: Non-toxic, In Acute Distress - Head Exam Head Exam: NORMAL INSPECTION, NORMOCEPHALIC - Eye Exam Eye Exam: EOMI, Normal appearance - ENT Exam ENT Exam: Mucous Membranes Moist, Normal Exam - Neck Exam Neck exam: Positive for: Normal Inspection - Respiratory Exam Respiratory Exam: Clear to Auscultation Bilateral, NORMAL BREATHING PATTERN. absent: Rales - Cardiovascular Exam Cardiovascular Exam: Tachycardia, +S1, +S2 - GI/Abdominal Exam GI & Abdominal Exam: Soft - Extremities Exam Additional comments: R thigh tenderness Dressing noted over R foot - Back Exam Back exam: NORMAL INSPECTION - Neurological Exam Neurological exam: Alert, Oriented x3 - Psychiatric Exam Psychiatric exam: Normal Affect, Normal Mood - Skin Skin Exam: Dry, Intact, Warm Assessment and Plan - Assessment and Plan (Free Text) Assessment: 43 y/o M with PMH of HTN, "palpitations", s/p R 5th metatarsal ORIF presenting with chest pain, shortness of breath, diaphoresis. Pt found to have extensive DVT & PE, started on therapeutic lovenox and subsequently transitions to eliquis Plan: Pulmonary Embolism Pt s/p R metatarsal surgery, R thigh tenderness Wells score: 9. D-Dimer 1530 CTA 07/28: Large emboli are seen in the left lower lobe pulmonary artery. Sm aller emboli are seen in the upper lobes bilaterally. The right ventricle is dilated consistent with right ventricular strain.There consolidation in the left lower lobe. This is in the distribution of the left lower lobe pulmonary emboli and may represent a pulmonary infarct B/L LE duplex 07/28 (prelim): Extensive right iliofemoral DVT as described above. The thrombus extends into the right external iliac vein. The patient should have a CT scan of the chest abdomen and pelvis with IV contrast to evaluate the IVC and iliac veins. If clinically indicated, the patient should be evaluated for possible catheter-directed venous thrombolysis EKG: Sinus Tachycardia @ 102 BPM. LVH present. No ST elevations. Continue eliquis for a total of 10 days at loading dose of 10md bid followed by 5mg bid. Will need anticoagulation for 12-18 months. Per IR, no plans for localized thrombolysis/thrombolectomy Will start compression socks and request pt to stay active Heme-onc recs appreciated Monitor CBC Sepsis 2/2 pneumonia Resolved. Remains afebrile, normotensive. Leukocytosis resolved. Procalcitonin wnl. cultures have been negative d/c fluids/antibiotics s/p R 5th metatarsal ORIF dressing in place Podiatry following Per podiatry, pt to remain NWB on RLE until next week's f/u visit Transaminitis Abdomen U/S (07/29): Hepatic steatosis noted without focal mass or intrahepatic biliary duct dilatation. [id number] hepatomegaly suggested. Body of pancreas is unremarkable with the remainder obscured by overlying bowel gas. Hepatitis panel, salicylates, acetaminophen levels negative Likely CONTRERAS vs drug induced vs acute inflammatory DVT/GI: eliquis/Pepcid Pt to follow up with PMD, Dr. Garcia Case reviewed with attending physician, Dr. Manuel Nielsen PGY1 <Sarah Jackson R - Last Filed: 08/01/18 14:58> Objective - Vital Signs/Intake and Output Vital Signs (last 24 hours): Temp Pulse Resp BP Pulse Ox 98.4 F 81 16 120/78 95 08/01/18 06:00 08/01/18 06:00 08/01/18 10:00 08/01/18 06:00 08/01/18 06:00 Intake and Output: 08/01/18 08/01/18 06:59 18:59 Intake Total 720 Output Total 300 600 Balance 420 -600 - Medications Medications: Current Medications Apixaban (Eliquis) 10 mg PO BID [facility]; Protocol Stop: 08/06/18 18:01 Last Admin: 08/01/18 10:47 Dose: 10 mg Famotidine (Pepcid) 40 mg PO HS [facility] Last Admin: 07/31/18 21:56 Dose: 40 mg - Labs Labs: 08/01/18 07:00 08/01/18 07:00 PT 15.0 SECONDS (9.4-12.5) H 07/28/18 17:45 INR 1.35 07/28/18 17:45 APTT 29.2 Seconds (26.9-38.3) 07/28/18 17:45 Attending/Attestation - Attestation I have personally seen and examined this patient.: Yes I have fully participated in the care of the patient.: Yes I have reviewed all pertinent clinical information, including history, physical exam and plan: Yes Notes (Text): Patient seen and examined by me with resident at approximately 10:55AM on 07/31/18. Case including HPI, physical exam, and assessment and plan discussed with resident. Agree with above with following additions/corrections. Patient is a 43-year-old male past medical history significant for hypertension, palpitations, and status post ORIF of the right foot fifth metatarsal on 07/22/2018 that presented to the emergency room with shortness of breath, left- sided chest pain with radiation to the left shoulder, and right leg pain for 3 days. Patient states he is feeling better. Continues to have pain in his right lower extremity but feels that its a little better. Chest pain and shortness of breath have improved. Patient denies palpitations. No nausea, vomiting, or abdominal pain. No headaches or dizziness. No fevers or chills. No dysuria. Physical exam: General: Awake and alert sitting up in bed in no acute distress HEENT: Normocephalic, atraumatic. Extraocular muscles intact. Pupils equal and reactive, no scleral icterus. Oropharynx pink and moist. No pharyngeal erythema or exudate appreciated. Neck supple. Cardiovascular: Regular rhythm. Normal S1 and S2. No murmurs, rubs, or gallops appreciated Pulmonary: Normal respiratory effort. Improved breath sounds. No rhonchi, rales, or wheezing appreciated Gastrointestinal: Soft, nondistended. Nontender. Positive bowel sounds all 4 quadrants. No guarding. Musculoskeletal: Moves all extremities. Right lower extremity dressing clean, dry, and intact. Positive edema right lower extremity. No edema or calf tenderness left extremity. Central nervous system: AAO x3. No focal deficits appreciated. Dermatologic: Skin warm and dry. Assessment and plan: Patient is a 43-year-old male past medical history significant for hypertension, palpitations, and status post ORIF of the right foot fifth metatarsal on 07/22/2018 that presented to the emergency room with shortness of breath, left-sided chest pain with radiation to the left shoulder, and right leg pain for 3 days. 1. Chest pain secondary to Pulmonary emboli. Right lower extremity pain secondary to DVT. Likely provoked secondary to immobility secondary to recent surgery. Started on Eliquis per scenic artist. Risks of Eliquis discussed at length with patient including but not limited to increased risk of bleeding. Patient understands and agrees to take medication. IR recommendations appreciated, no plan for thrombolysis/thrombectomy. Pulmonary recommendations appreciated. 2D echo per global logistics manager showed normal chamber size, EF 55-60%, trace MR/TR/AR/PI, no evidence dilated RV or pulmonary hypertension. CTA chest p er radiology showed large emboli are seen in the left upper lobe pulmonary artery; smaller emboli are seen in the upper lobes bilaterally; the right ventricle is dilated consistent with right ventricular strain; there is consolidation in the left lower lobe, this is in the distribution of the left l ower lobe pulmonary emboli and may represent a pulmonary infarct. Bilateral venous Dopplers per radiologist's showed extensive right iliofemoral DVT, the thrombus extends into the right external iliac vein. 2. Questionable pneumonia. Unlikely. Afebrile. Blood cultures with no growth. Procalcitonin 0.20. Leukocytosis resolved. Antibiotics stopped. 3. Transaminitis. CPK within normal limits. Hepatitis panel negative. LFTS uptrending. GI consulted, pending recommendations. Abdominal ultrasound per radiologist showed hepatic steatosis noted without focal mass or intrahepatic biliary duct dilatation; mild to moderate hepatomegaly suggested; body pancreas is unremarkable with the remainder of scared by overlying bowel gas. Patient is aware of ultrasound results and understands he will need further work up and follow up with a procedures analyst as an outpatient. 4. S/P ORIF of the right foot fifth metatarsal on 07/22/2018. Podiatry following. Dressing in place. Patient to follow up next week as outpatient for transition to a boot. 5. GI/DVT prophylaxis. Pepcid/Eliquis. Patient's primary care doctor made aware of need for patient to follow up with scenic artist for PE, DVT, and anticoagulation and the need to follow up with GI for transaminitis and hepatic steatosis. Case was discussed in detail with the patient regarding current diagnosis and treatment plan. All questions answered.
[2018-07-31 18:14] LABS: URINE BILIRUBIN NEGATIVE (NEGATIVE); URINE BLOOD NEGATIVE (NEGATIVE); URINE GLUCOSE (UA) NEGATIVE (NEGATIVE); URINE LEUKOCYTE ESTERASE NEGATIVE Leu/uL (NEGATIVE); URINE PROTEIN NEGATIVE mg/dL (<30 mg/dL); URINE UROBILINOGEN 0.2 E.U./dL (<1 E.U./dL)
[2018-07-31 18:18] LABS: URINE APPEARANCE CLEAR (CLEAR); URINE COLOR YELLOW (YELLOW)
[2018-07-31 19:43] LABS: BARBITURATES, UR NEGATIVE (NEGATIVE); BENZODIAZEPINES, UR NEGATIVE (NEGATIVE); OPIATES, UR NEGATIVE (NEGATIVE); PHENCYCLIDINE, UR NEGATIVE (NEGATIVE)
--- NOTE | 2018-08-01 07:04 | CP.PCM.PN ---
Subjective - Date & Time of Evaluation Date of Evaluation: 08/01/18 Time of Evaluation: 07:33 - Subjective Subjective: Podiatry Progress note for Dr. Herminio Blackmon, 43 y/o s/p ORIF L 5th metatarsal (07/21/18) seen and evaluated at bedside. Patient denies any acute overnight complaints. Patient reports the pain in right leg still persists. Objective - Vital Signs/Intake and Output Vital Signs (last 24 hours): Temp Pulse Resp BP Pulse Ox 99.2 F 86 18 127/80 94 L 07/31/18 22:21 07/31/18 22:21 07/31/18 22:21 07/31/18 22:21 07/31/18 22:21 Intake and Output: 08/01/18 08/01/18 06:59 18:59 Intake Total 720 Output Total 300 Balance 420 - Medications Medications: Current Medications Apixaban (Eliquis) 10 mg PO BID [facility]; Protocol Stop: 08/06/18 18:01 Last Admin: 07/31/18 17:19 Dose: 10 mg Famotidine (Pepcid) 40 mg PO HS [facility] Last Admin: 07/31/18 21:56 Dose: 40 mg - Labs Labs: 07/31/18 07:10 07/31/18 07:10 PT 15.0 SECONDS (9.4-12.5) H 07/28/18 17:45 INR 1.35 07/28/18 17:45 APTT 29.2 Seconds (26.9-38.3) 07/28/18 17:45 - Constitutional Appears: Well, Non-toxic, No Acute Distress - Head Exam Head Exam: ATRAUMATIC, NORMOCEPHALIC - Extremities Exam Additional comments: Dressing clean dry and intact - Neurological Exam Neurological Exam: Alert, Awake, Oriented x3 - Psychiatric Exam Psychiatric exam: Normal Affect, Normal Mood Assessment and Plan - Assessment and Plan (Free Text) Assessment: 43 y/o M with PMH of HTN, "palpitations", s/p R 5th metatarsal ORIF presenting with chest pain, shortness of breath, diaphoresis. Pt found to have extensive DVT & PE, started on therapeutic lovenox Plan: Patient seen and evaluated Plan discussed with attending Chart, labs and vitals reviewed- afebrile, absent leukocytosis WBC 9.5 Right Leg US: right iliofemoral DVR Chest CT: (prelim): Evidence of extensive L sided pulmonary emboli as described Patient evaluated by Dr. Montanez, who recommended oral anticoagulants and Lovenox Injection at this time Patient able to perform range of motion exercises while in bed Patient will be transitioned to a CAMboot next week after visit to Dr. Blackmon Patient to remain NWB to the RLE with crutches Patient states he is comfortable using crutches, post-op shoe ordered for patient Podiatry will continue to follow patient while in house
[2018-08-01 07:07] LABS: HEMOGLOBIN 13.6 g/dL (14.0-18.0); MEAN CELL VOLUME 78.4 fl (80.0-105.0); MEAN CORPUSCULAR HEMOGLOBIN 25.1 pg (25.0-35.0); MEAN PLATELET VOLUME 8.6 fl (7.0-11.0); RBC 5.42 10^6/uL (3.5-6.1); RED CELL DISTRIBUTION WIDTH 14.2 % (11.5-14.5); WHITE BLOOD COUNT 9.5 10^3/uL (4.5-11.0)
[2018-08-01 07:32] LABS: ALBUMIN 3.7 g/dL (3.0-4.8); ALT/SGPT 288 U/L (7-56); AST/SGOT 130 U/L (17-59); BLOOD UREA NITROGEN 13 mg/dL (7-21); CALCIUM 8.9 mg/dL (8.4-10.5); GFR NON-AFRICAN AMERICAN > 60
[2018-08-01 07:45] VITALS: BP 120/78; PULSE 81; TEMP 98.4; O2SAT 95
--- NOTE | 2018-08-01 07:45 | CP.PCM.PN ---
<Jackie Snell - Last Filed: 08/01/18 09:50> Subjective - Date & Time of Evaluation Date of Evaluation: 08/01/18 Time of Evaluation: 07:43 - Subjective Subjective: Gastroenterology Fellow/PGY6 Progress Note Patient feels well. Tolerating diet. Denies abdominal pain. Denies bowel movement. 12-point review of systems negative except for as above. Objective - Vital Signs/Intake and Output Vital Signs (last 24 hours): Temp Pulse Resp BP Pulse Ox 99.2 F 86 18 127/80 94 L 07/31/18 22:21 07/31/18 22:21 07/31/18 22:21 07/31/18 22:21 07/31/18 22:21 Intake and Output: 08/01/18 08/01/18 06:59 18:59 Intake Total 720 Output Total 300 600 Balance 420 -600 - Medications Medications: Current Medications Apixaban (Eliquis) 10 mg PO BID [facility]; Protocol Stop: 08/06/18 18:01 Last Admin: 07/31/18 17:19 Dose: 10 mg Famotidine (Pepcid) 40 mg PO HS [facility] Last Admin: 07/31/18 21:56 Dose: 40 mg - Labs Labs: 08/01/18 07:00 08/01/18 07:00 PT 15.0 SECONDS (9.4-12.5) H 07/28/18 17:45 INR 1.35 07/28/18 17:45 APTT 29.2 Seconds (26.9-38.3) 07/28/18 17:45 - Constitutional Appears: Non-toxic, No Acute Distress - Head Exam Head Exam: ATRAUMATIC, NORMOCEPHALIC - Eye Exam Eye Exam: EOMI, PERRL. absent: Scleral icterus Pupil Exam: PERRL. absent: Miosis, Mydriatic - ENT Exam ENT Exam: Mucous Membranes Moist, Normal Oropharynx - Neck Exam Neck Exam: Full ROM, Normal Inspection - Respiratory Exam Respiratory Exam: Clear to Ausculation Bilateral. absent: Rales, Rhonchi, Wheezes - Cardiovascular Exam Cardiovascular Exam: RRR, +S1, +S2. absent: Gallop, Rubs - GI/Abdominal Exam GI & Abdominal Exam: Soft, Normal Bowel Sounds. absent: Distended, Firm, Guarding, Rigid, Tenderness, Organomegaly, Rebound - Extremities Exam Extremities Exam: Normal Inspection. absent: Pedal Edema - Neurological Exam Neurological Exam: Alert, Awake - Psychiatric Exam Psychiatric exam: Normal Affect, Normal Mood - Skin Skin Exam: Dry, Intact, Normal Color, Warm Assessment and Plan - Assessment and Plan (Free Text) Assessment: 43 year old male with PMH of HTN, Obesity, tobacco abuse, and recent right fifth metatarsal fracture due to fall s/p closed reduction(07/21/18) presenting with shortness of breath and chest pain. Active treatment of acute left lower lobe pulmonary embolism and right lower extremity DVT on Eliquis. GI consultation for elevated LFTs noted to be acutely elevated on 07/28/18. Prior EGD 12/2015 showed small hiatal hernia, normal duodenal biopsies, and H. pylori positive gastritis s/op therapy with confirmed eradication on breath testing per patient. No prior colonoscopy. Plan: -suspicious for drug-induced liver injury versus vascular compromise -in setting of acute PE/DVT with right ventricular strain -U/S-steatosis, no gallstones or dilatation -Duplex Ultrasound- negative for thrombosis or obstruction -pending autoimmune serologies -07/21- received cefazolin, 07/28 received ceftriaxone and azithromycin -negative CK, Hepatitis panel, drug screen, acetaminophen, salicylate -continue to trend LFTs and follow up chronic autoimmune workup <Hernandez Franklin - Last Filed: 08/01/18 12:39> Objective - Vital Signs/Intake and Output Vital Signs (last 24 hours): Temp Pulse Resp BP Pulse Ox 98.4 F 81 16 120/78 95 08/01/18 06:00 08/01/18 06:00 08/01/18 10:00 08/01/18 06:00 08/01/18 06:00 Intake and Output: 08/01/18 08/01/18 06:59 18:59 Intake Total 720 Output Total 300 600 Balance 420 -600 - Medications Medications: Current Medications Apixaban (Eliquis) 10 mg PO BID [facility]; Protocol Stop: 08/06/18 18:01 Last Admin: 08/01/18 10:47 Dose: 10 mg Famotidine (Pepcid) 40 mg PO HS [facility] Last Admin: 07/31/18 21:56 Dose: 40 mg - Labs Labs: 08/01/18 07:00 08/01/18 07:00 PT 15.0 SECONDS (9.4-12.5) H 07/28/18 17:45 INR 1.35 07/28/18 17:45 APTT 29.2 Seconds (26.9-38.3) 07/28/18 17:45 Attending/Attestation - Attestation I have personally seen and examined this patient.: Yes I have fully participated in the care of the patient.: Yes I have reviewed all pertinent clinical information, including history, physical exam and plan: Yes Notes (Text): 08/01/18 12:36 I have seen and examined patient with GI fellow. No acute events overnight, he is seen resting in bed comfortably, reports pain in foot. He otherwise denies nausea, vomiting, fever/chills, abdominal pain. Tolerating PO diet without difficulty. HTN Recent fall with lower extremity trauma Transaminitis PE/DVT on eliquis - Diet as tolerated - LFTs stable, continue to monitor and avoid hepatotoxic therapies. Etiology unclear though suspect drug induced liver injury given clinical scenario. - Awaiting additional autoimmune panel results - Abdominal sonogram with duplex shows patent portal vein - Patient will require repeat LFTs within 1 week, he has an appointment with PMD Dr. Garcia. No further planned GI intervention at this time, will sign off case. Please reconsult as necessary, thank you.
--- NOTE | 2018-08-01 09:48 | US ---
PROCEDURE: Portal vein duplex ultrasound. CLINICAL HISTORY: Abnormal liver function tests. Evaluate for portal vein thrombosis. PHYSICIAN(S): Herminio Montanez M.D. FINDINGS: The extrahepatic portal vein is patent with hepatopetal flow. No sonographic evidence for thrombus or obstruction is seen. The 3 hepatic veins are visualized centrally and patent. The hepatic artery is patent. No obvious liver masses are appreciated on these limited imaging. The spleen is normal in size. There is no ascites in the upper abdomen IMPRESSION: 1. Patent portal vein with hepatopetal flow.
[2018-08-01 11:55] VITALS: RESP 16
--- NOTE | 2018-08-01 12:20 | CP.PCM.DIS ---
<Gustavo Nielsen - Last Filed: 08/01/18 12:39> Provider - Provider Date of Admission: 07/28/18 18:10 Attending physician: Sarah Jackson DO Primary care physician: Yuniel Phillips MD Consults: 07/28/18 17:54 Podiatry Consult Stat Comment: Consulting Provider: Herminio Blcakmon Consulting Physician: Herminio Blackmon Reason for Consult: s/p fixation of foot fx 07/29/18 03:23 Transition In Care/Readmission Reduction Routine Comment: Physician Instructions: Reason For Exam: admission assessment 07/29/18 08:42 Pulmonology Consult Routine Comment: Consulting Provider: Roscoe Ken Consulting Physician: Roscoe Ken Reason for Consult: Pulmonary embolism, ?pulm infarct 07/29/18 14:20 Physician Consult Routine Comment: Consulting Provider: Selam Luciano Consulting Physician: Selam Luciano Reason for Consult: anticoagulation recommendations for extensive DVT/PE 07/31/18 08:33 Gastroenterology Consult Routine Comment: Consulting Provider: Hernandez Franklin Consulting Physician: Hernandez Franklin Reason for Consult: Transaminitis Time Spent in preparation of Discharge (in minutes): 45 Diagnosis - Discharge Diagnosis (1) Pulmonary embolism Status: Acute (2) DVT (deep venous thrombosis) Status: Acute (3) Metatarsal fracture Status: Acute (4) S/P ORIF (open reduction internal fixation) fracture Status: Resolved (5) Transaminitis Status: Acute (6) Obesity Status: Chronic Hospital Course - Lab Results Lab Results: Micro Results 07/28/18 23:04 Blood Blood Culture - Preliminary NO GROWTH AFTER 3 DAYS 07/29/18 16:02 Urine,Clean Catch Urine Culture - Final No Growth (<1,000 CFU/ML) Most Recent Lab Values WBC 9.5 10^3/uL (4.5-11.0) 08/01/18 07:00 RBC 5.42 10^6/uL (3.5-6.1) 08/01/18 07:00 Hgb 13.6 g/dL (14.0-18.0) L 08/01/18 07:00 Hct 42.5 % (42.0-52.0) 08/01/18 07:00 MCV 78.4 fl (80.0-105.0) L 08/01/18 07:00 MCH 25.1 pg (25.0-35.0) 08/01/18 07:00 MCHC 32.0 g/dl (31.0-37.0) 08/01/18 07:00 RDW 14.2 % (11.5-14.5) 08/01/18 07:00 Plt Count 376 10^3/uL (120.0-450.0) 08/01/18 07:00 MPV 8.6 fl (7.0-11.0) 08/01/18 07:00 Neut % (Auto) 64.7 % (50.0-68.0) 07/31/18 07:10 Lymph % (Auto) 23.0 % (22.0-35.0) 07/31/18 07:10 Morrison % (Auto) 9.6 % (1.0-6.0) H 07/31/18 07:10 Eos % (Auto) 2.5 % (1.5-5.0) 07/31/18 07:10 Baso % (Auto) 0.2 % (0.0-3.0) 07/31/18 07:10 Lymph # (Auto) 2.3 (1.2-3.4) 07/31/18 07:10 Morrison # (Auto) 1.0 (0.1-0.6) H 07/31/18 07:10 Eos # (Auto) 0.3 (0.0-0.7) 07/31/18 07:10 Baso # (Auto) 0.02 K/mm3 (0.0-2.0) 07/31/18 07:10 Absolute Neuts (auto) 6.41 (1.4-6.5) 07/31/18 07:10 Retic Count 0.99 % (0.5-1.5) 07/31/18 09:40 Haptoglobin 405.1 mg/dL (30.0-200.0) H 07/31/18 09:38 PT 15.0 SECONDS (9.4-12.5) H 07/28/18 17:45 INR 1.35 07/28/18 17:45 APTT 29.2 Seconds (26.9-38.3) 07/28/18 17:45 D-Dimer, Quantitative 1530 ng/mlDDU (0-243) H 07/28/18 17:45 Sodium 138 mmol/L (132-148) 08/01/18 07:00 Potassium 4.2 mmol/L (3.6-5.0) 08/01/18 07:00 Chloride 102 mmol/L (98-107) 08/01/18 07:00 Carbon Dioxide 26 mmol/L (21-33) 08/01/18 07:00 Anion Gap 14 (10-20) 08/01/18 07:00 BUN 13 mg/dL (7-21) 08/01/18 07:00 Creatinine 0.8 mg/dl (0.8-1.5) 08/01/18 07:00 Est GFR ( Amer) > 60 08/01/18 07:00 Est GFR (Non-Af Amer) > 60 08/01/18 07:00 Random Glucose 95 mg/dL (70-110) 08/01/18 07:00 Hemoglobin A1c 6.1 % (4.2-6.5) 07/29/18 07:00 Calcium 8.9 mg/dL (8.4-10.5) 08/01/18 07:00 Phosphorus 4.1 mg/dL (2.5-4.5) 07/31/18 07:10 Magnesium 2.2 mg/dL (1.7-2.2) 07/31/18 07:10 Iron 23 ug/dL (45-180) L 07/31/18 16:00 TIBC 264 ug/dL (261-462) 07/31/18 16:00 % Saturation 9 % (20-55) L 07/31/18 16:00 Ferritin 592.0 ng/mL 07/31/18 16:00 Total Bilirubin 0.3 mg/dL (0.2-1.3) 08/01/18 07:00 GGT 199 U/L (8-78) H 07/31/18 09:39 AST 130 U/L (17-59) H 08/01/18 07:00 ALT 288 U/L (7-56) H 08/01/18 07:00 Alkaline Phosphatase 145 U/L (38-126) H 08/01/18 07:00 Lactate Dehydrogenase 977 U/L (333-699) H 07/31/18 09:39 Total Creatine Kinase 83 U/L (35-230) 07/29/18 06:00 Troponin I < 0.01 ng/mL 07/29/18 01:25 Total Protein 7.5 g/dL (5.8-8.3) 08/01/18 07:00 Albumin 3.7 g/dL (3.0-4.8) 08/01/18 07:00 Globulin 3.8 gm/dL 08/01/18 07:00 Albumin/Globulin Ratio 1.0 (1.1-1.8) L 08/01/18 07:00 Triglycerides 185 mg/dL (35-160) H 07/29/18 07:00 Cholesterol 157 mg/dL (130-200) 07/29/18 07:00 LDL Cholesterol Direct 104 mg/dL (0-129) 07/29/18 07:00 HDL Cholesterol 14 mg/dL (29-60) L 07/29/18 07:00 Lipase 34 U/L (23-300) 07/28/18 17:45 Procalcitonin 0.20 NG/ML (0.19-0.49) 07/28/18 20:20 Free T4 1.80 ng/dL (0.78-2.19) 07/29/18 08:00 TSH 3rd Generation 4.01 mIU/mL (0.46-4.68) 07/29/18 07:00 Urine Color Yellow (YELLOW) 07/31/18 17:40 Urine Appearance Clear (CLEAR) 07/31/18 17:40 Urine pH 6.0 (4.7-8.0) 07/31/18 17:40 Ur Specific [place] 1.025 (1.005-1.035) 07/31/18 17:40 Urine Protein Negative mg/dL (<30 mg/dL) 07/31/18 17:40 Urine Glucose (UA) Negative mg/dL (NEGATIVE) 07/31/18 17:40 Urine Ketones Negative mg/dL (NEGATIVE) 07/31/18 17:40 Urine Blood Negative (NEGATIVE) 07/31/18 17:40 Urine Nitrate Negative (NEGATIVE) 07/31/18 17:40 Urine Bilirubin Negative (NEGATIVE) 07/31/18 17:40 Urine Urobilinogen 0.2 E.U./dL (<1 E.U./dL) 07/31/18 17:40 Ur Leukocyte Esterase Negative Steve/uL (NEGATIVE) 07/31/18 17:40 Salicylates < 1 mg/dL (2.0-20.0) L 07/31/18 16:00 Urine Opiates Screen Negative (NEGATIVE) 07/31/18 17:54 Urine Methadone Screen Negative (NEGATIVE) 07/31/18 17:54 Acetaminophen < 10.0 ug/ml (10.0-20.0) L 07/31/18 16:00 Ur Barbiturates Screen Negative (NEGATIVE) 07/31/18 17:54 Ur Phencyclidine Scrn Negative (NEGATIVE) 07/31/18 17:54 Ur Amphetamines Screen Negative (NEGATIVE) 07/31/18 17:54 U Benzodiazepines Scrn Negative (NEGATIVE) 07/31/18 17:54 U Oth Cocaine Metabols Negative (NEGATIVE) 07/31/18 17:54 U Cannabinoids Screen Negative (NEGATIVE) 07/31/18 17:54 Hepatitis A IgM Ab See replicates (NEGATIVE) 07/29/18 07:00 Hep Bs Antigen Negative (NEGATIVE) 07/29/18 07:00 Hep B Core IgM Ab Negative (NEGATIVE) 07/29/18 07:00 Hepatitis C Antibody Negative (NEGATIVE) 07/29/18 07:00 - Hospital Course Hospital Course: Upon Admission: 43 y/o M with PMHx HTN, palpitations POD6(07/22) s/p ORIF L 5th metatarsal presented to ED with complaints of SOB, L sided chest pain with radiation to L shoulder, severe R leg pain that began about 3 days ago. Pt reports he underwent his R foot surgery after falling on and was recovering well until 3 days ago when he noticed the symptoms. Pt also noted increased diaphoresis associated with the symptoms. He reports his chest pain is worse with inspiration with increased radiation to L shoulder. He has taken ibuprofen for pain however did not find relief. He also reports shortness of breath, and discomfort with breathing, without productive sputum Hospital Course: CTA angio was ordered revealing acute pulmonary embolism. B/l extremity u/s revealed extensive iliofemoral DVT. Therapeutic lovenox was started. Echo was performed revealing no acute RV dilatation. Pt's recruiter account manager, pulmonology, IR were consulted for possible thrombolectomy. Pt was treated with sepsis 2/2 pneumonia with rocephin/azithro and IVF. IR was consulted for possible catheter directed tpA however recommended anticoagulation with DOAC. Pt was subsequently transitioned over to eliquis. Heme/onc consult was placed who also recommended eliquis & hypercoaguable workup outpatient. Pt was evaluated by GI for transaminitis. Abd u/s & portal vein duplex u/s were ordered. Pt was evaluated by podiatry who recommended NWB to R foot with transition to boot. next week. Pt deemed stable for discharge with close follow-up by specialists. Upon Discharge: Pt is feeling better. Vital signs/ labs stable. Per GI, transaminitis workup can be followed up in outpatient setting. Pt counselled on lifestyle modification, medication compliance and close outpatient followup. Patient's PMD, Dr. Guevara has been contacted and is aware of patient's diagnosis and treatment. He was made aware of initiation of anticoagulation. PT educated on risks/benefits of blood thinners Following medications were prescribed: Eliquis 10mg bid x 5 days (completed 2 days in hospital) Eliquis 5mg bid x [address] Angio PE protocol: Large emboli are seen in the left lower lobe pulmonary artery. Smaller emboli are seen in the upper lobes bilaterally. The right ventricle is dilated consistent with right ventricular strain. There consolidation in the left lower lobe. This is in the distribution of the left lower lobe pulmonary emboli and may represent a pulmonary infarct B/L Extremity Ultrasound: Extensive right iliofemoral DVT as described above. The thrombus extends into the right external iliac vein. The patient should have a CT scan of the chest abdomen and pelvis with IV contrast to evaluate the IVC and iliac veins. If clinically indicated, the patient should be evaluated for possible catheter- directed venous thrombolysis Portal Vein Duplex Ultrasound: 1. Patent portal vein with hepatopetal flow. Abdomen Ultrasound: Hepatic steatosis noted without focal mass or intrahepatic biliary duct dilatation. [id number] hepatomegaly suggested. Body of pancreas is unremarkable with the remainder obscured by overlying bowel gas. Echocardiogram: Normal Chamber Size. EF-55-60% Trace MR/TR/AR/PI. No evidence of dilated RV or pulmonary HTN. CXR 07/28: Left lower lobe airspace consolidation appears consistent with pneumonia. Correlate clinically. Left hilar prominence R foot 3-view Xray: There is a screw through a transverse fracture at the base of the 5th metatarsal. Discharge Exam - Head Exam Head Exam: ATRAUMATIC, NORMOCEPHALIC - Eye Exam Eye Exam: EOMI, Normal appearance - ENT Exam ENT Exam: Mucous Membranes Moist - Neck Exam Neck exam: Normal Inspection - Respiratory Exam Respiratory Exam: NORMAL BREATHING PATTERN, UNREMARKABLE - Cardiovascular Exam Cardiovascular Exam: REGULAR RHYTHM, +S1, +S2 - GI/Abdominal Exam GI & Abdominal Exam: Soft. absent: Tenderness - Extremities Exam Additional comments: R foot dressing in place - Back Exam Back exam: NORMAL INSPECTION - Neurological Exam Neurological exam: Alert, Oriented x3 - Psychiatric Exam Psychiatric exam: Normal Affect, Normal Mood - Skin Skin Exam: Dry, Intact, Warm Discharge Plan - Discharge Medications Prescriptions: Apixaban [Eliquis] 10 mg PO BID 5 Days #20 tab Apixaban [Eliquis] 5 mg PO BID #42 tab - Follow Up Plan Condition: STABLE Disposition: HOME/ ROUTINE Instructions: Deep Vein Thrombosis (Blood Clots in the Legs) (DC), How to Use Crutches, Pulmonary Embolism (Blood Clot in the Lungs) (DC), Anti-Clotting Medicines: Direct Oral Anticoagulants, How to Prevent Blood Clots, Going Home on Blood Thinners , Leg Edema (ED) Additional Instructions: Please follow up with your primary care doctor, Dr. Guevara within 3-5 days of discharge from the hospital. Please ask your doctor for referral to specialist doctors. Please follow up with your renal case manager, Dr. Luciano, within 1 week of discharge for your lung clots and clots in your leg. Please follow up with your recruiter account manager (foot doctor), Dr. Blackmon within 3-5 days of discharge. Please follow up with your battery container tester aluminum (liver doctor) within 1 week of discharge. You will need further follow up on your elevated liver numbers. Please discuss with all of your doctors that you have been started on a blood thinner. Please avoid NSAIDs (advil, motrin, ibuprofen, naproxen, naprosyn, indomethacin, diclofenac, celecoxib, celebrex, aspirin) while taking blood thinners Please HOLD the following blood pressure medications as your blood pressure has been normal here while you were not taking these medications. Metoprolol Hydrochlorothiazide (HCTZ) Please discuss your blood pressure medications with your primary care doctor prior to restarting. You have been started on the following medications. Please take them as directed Apixaban 5mg. Please take 2 tablets (total of 10mg) by mouth twice a day until 08/06/18. On 08/07/2018, Start: Apixaban 5mg. Please take 1 tablet by mouth twice daily. If your symptoms return, or you experience new symptoms, please go to the nearest emergency room Referrals: Dima Jones MD [Family Provider] - Hernandez Franklin MD [Staff Provider] - Herminio Blackmon, DPM [Staff Provider] - Selam Luciano MD [Staff Provider] - <Sarah Jackson - Last Filed: 08/02/18 16:53> Provider - Provider Date of Admission: 07/28/18 18:10 Attending physician: Sarah Jackson DO Primary care physician: Yuniel Phillips MD Consults: 07/28/18 17:54 Podiatry Consult Stat Comment: Consulting Provider: Herminio Blackmon Consulting Physician: Hreminio Blackmon Reason for Consult: s/p fixation of foot fx 07/29/18 03:23 Transition In Care/Readmission Reduction Routine Comment: Physician Instructions: Reason For Exam: admission assessment 07/29/18 08:42 Pulmonology Consult Routine Comment: Consulting Provider: Roscoe Ken Consulting Physician: Roscoe Ken Reason for Consult: Pulmonary embolism, ?pulm infarct 07/29/18 14:20 Physician Consult Routine Comment: Consulting Provider: Selam Luciano Consulting Physician: Selam Luciano Reason for Consult: anticoagulation recommendations for extensive DVT/PE Hospital Course - Lab Results Lab Results: Micro Results 07/28/18 23:04 Blood Blood Culture - Preliminary NO GROWTH AFTER 4 DAYS 07/29/18 16:02 Urine,Clean Catch Urine Culture - Final No Growth (<1,000 CFU/ML) Most Recent Lab Values WBC 9.5 10^3/uL (4.5-11.0) 08/01/18 07:00 RBC 5.42 10^6/uL (3.5-6.1) 08/01/18 07:00 Hgb 13.6 g/dL (14.0-18.0) L 08/01/18 07:00 Hct 42.5 % (42.0-52.0) 08/01/18 07:00 MCV 78.4 fl (80.0-105.0) L 08/01/18 07:00 MCH 25.1 pg (25.0-35.0) 08/01/18 07:00 MCHC 32.0 g/dl (31.0-37.0) 08/01/18 07:00 RDW 14.2 % (11.5-14.5) 08/01/18 07:00 Plt Count 376 10^3/uL (120.0-450.0) 08/01/18 07:00 MPV 8.6 fl (7.0-11.0) 08/01/18 07:00 Neut % (Auto) 64.7 % (50.0-68.0) 07/31/18 07:10 Lymph % (Auto) 23.0 % (22.0-35.0) 07/31/18 07:10 Morrison % (Auto) 9.6 % (1.0-6.0) H 07/31/18 07:10 Eos % (Auto) 2.5 % (1.5-5.0) 07/31/18 07:10 Baso % (Auto) 0.2 % (0.0-3.0) 07/31/18 07:10 Lymph # (Auto) 2.3 (1.2-3.4) 07/31/18 07:10 Morrison # (Auto) 1.0 (0.1-0.6) H 07/31/18 07:10 Eos # (Auto) 0.3 (0.0-0.7) 07/31/18 07:10 Baso # (Auto) 0.02 K/mm3 (0.0-2.0) 07/31/18 07:10 Absolute Neuts (auto) 6.41 (1.4-6.5) 07/31/18 07:10 Retic Count 0.99 % (0.5-1.5) 07/31/18 09:40 Haptoglobin 405.1 mg/dL (30.0-200.0) H 07/31/18 09:38 PT 15.0 SECONDS (9.4-12.5) H 07/28/18 17:45 INR 1.35 07/28/18 17:45 APTT 29.2 Seconds (26.9-38.3) 07/28/18 17:45 D-Dimer, Quantitative 1530 ng/mlDDU (0-243) H 07/28/18 17:45 Sodium 138 mmol/L (132-148) 08/01/18 07:00 Potassium 4.2 mmol/L (3.6-5.0) 08/01/18 07:00 Chloride 102 mmol/L (98-107) 08/01/18 07:00 Carbon Dioxide 26 mmol/L (21-33) 08/01/18 07:00 Anion Gap 14 (10-20) 08/01/18 07:00 BUN 13 mg/dL (7-21) 08/01/18 07:00 Creatinine 0.8 mg/dl (0.8-1.5) 08/01/18 07:00 Est GFR ( Amer) > 60 08/01/18 07:00 Est GFR (Non-Af Amer) > 60 08/01/18 07:00 Random Glucose 95 mg/dL (70-110) 08/01/18 07:00 Hemoglobin A1c 6.1 % (4.2-6.5) 07/29/18 07:00 Calcium 8.9 mg/dL (8.4-10.5) 08/01/18 07:00 Phosphorus 4.1 mg/dL (2.5-4.5) 07/31/18 07:10 Magnesium 2.2 mg/dL (1.7-2.2) 07/31/18 07:10 Iron 23 ug/dL (45-180) L 07/31/18 16:00 TIBC 264 ug/dL (261-462) 07/31/18 16:00 % Saturation 9 % (20-55) L 07/31/18 16:00 Ferritin 592.0 ng/mL 07/31/18 16:00 Total Bilirubin 0.3 mg/dL (0.2-1.3) 08/01/18 07:00 GGT 199 U/L (8-78) H 07/31/18 09:39 AST 130 U/L (17-59) H 08/01/18 07:00 ALT 288 U/L (7-56) H 08/01/18 07:00 Alkaline Phosphatase 145 U/L (38-126) H 08/01/18 07:00 Lactate Dehydrogenase 977 U/L (333-699) H 07/31/18 09:39 Total Creatine Kinase 83 U/L (35-230) 07/29/18 06:00 Troponin I < 0.01 ng/mL 07/29/18 01:25 Total Protein 7.5 g/dL (5.8-8.3) 08/01/18 07:00 Albumin 3.7 g/dL (3.0-4.8) 08/01/18 07:00 Globulin 3.8 gm/dL 08/01/18 07:00 Albumin/Globulin Ratio 1.0 (1.1-1.8) L 08/01/18 07:00 Triglycerides 185 mg/dL (35-160) H 07/29/18 07:00 Cholesterol 157 mg/dL (130-200) 07/29/18 07:00 LDL Cholesterol Direct 104 mg/dL (0-129) 07/29/18 07:00 HDL Cholesterol 14 mg/dL (29-60) L 07/29/18 07:00 Lipase 34 U/L (23-300) 07/28/18 17:45 Procalcitonin 0.20 NG/ML (0.19-0.49) 07/28/18 20:20 Free T4 1.80 ng/dL (0.78-2.19) 07/29/18 08:00 TSH 3rd Generation 4.01 mIU/mL (0.46-4.68) 07/29/18 07:00 Urine Color Yellow (YELLOW) 07/31/18 17:40 Urine Appearance Clear (CLEAR) 07/31/18 17:40 Urine pH 6.0 (4.7-8.0) 07/31/18 17:40 Ur Specific [place] 1.025 (1.005-1.035) 07/31/18 17:40 Urine Protein Negative mg/dL (<30 mg/dL) 07/31/18 17:40 Urine Glucose (UA) Negative mg/dL (NEGATIVE) 07/31/18 17:40 Urine Ketones Negative mg/dL (NEGATIVE) 07/31/18 17:40 Urine Blood Negative (NEGATIVE) 07/31/18 17:40 Urine Nitrate Negative (NEGATIVE) 07/31/18 17:40 Urine Bilirubin Negative (NEGATIVE) 07/31/18 17:40 Urine Urobilinogen 0.2 E.U./dL (<1 E.U./dL) 07/31/18 17:40 Ur Leukocyte Esterase Negative Steve/uL (NEGATIVE) 07/31/18 17:40 Salicylates < 1 mg/dL (2.0-20.0) L 07/31/18 16:00 Urine Opiates Screen Negative (NEGATIVE) 07/31/18 17:54 Urine Methadone Screen Negative (NEGATIVE) 07/31/18 17:54 Acetaminophen < 10.0 ug/ml (10.0-20.0) L 07/31/18 16:00 Ur Barbiturates Screen Negative (NEGATIVE) 07/31/18 17:54 Ur Phencyclidine Scrn Negative (NEGATIVE) 07/31/18 17:54 Ur Amphetamines Screen Negative (NEGATIVE) 07/31/18 17:54 U Benzodiazepines Scrn Negative (NEGATIVE) 07/31/18 17:54 U Oth Cocaine Metabols Negative (NEGATIVE) 07/31/18 17:54 U Cannabinoids Screen Negative (NEGATIVE) 07/31/18 17:54 Hepatitis A IgM Ab See replicates (NEGATIVE) 07/29/18 07:00 Hep Bs Antigen Negative (NEGATIVE) 07/29/18 07:00 Hep B Core IgM Ab Negative (NEGATIVE) 07/29/18 07:00 Hepatitis C Antibody Negative (NEGATIVE) 07/29/18 07:00 Attending/Attestation - Attestation I have personally seen and examined this patient.: Yes I have fully participated in the care of the patient.: Yes I have reviewed all pertinent clinical information, including history, physical exam and plan: Yes Notes (Text): Please note this DC summary is for 08/01/18 Patient seen and examined by me with resident at approximately 11:00AM on 08/01/18. Case including discharge plan discussed with resident. Agree with above with following additions/corrections. Patient is a 43-year-old male past medical history significant for hypertension, palpitations, and status post ORIF of the right foot fifth metatarsal on 07/22/2018 that presented to the emergency room with shortness of breath, left- sided chest pain with radiation to the left shoulder, and right leg pain for 3 days. Please see H&P for full details. Patient was found to have chest pain secondary to pulmonary emboli, right lower extremity pain secondary to DVT, questionable pneumonia, transaminitis, status post ORIF of the right foot fifth metatarsal. CTA chest per radiology showed large emboli are seen in the left upper lobe pulmonary artery; smaller emboli are seen in the upper lobes bilaterally; the right ventricle is dilated consistent with right ventricular strain; there is consolidation in the left lower lobe, this is in the distribution of the left lower lobe pulmonary emboli and may represent a pulmonary infarct. Bilateral venous Dopplers per radiologist's showed extensive right iliofemoral DVT, the thrombus extends into the right external iliac vein. 2D echo per resistor winder showed normal chamber size, EF 55-60%, trace MR/TR/AR/PI, no evidence dilated RV or pulmonary hypertension. Patient was initially placed on therapeutic Lovenox. Patient was seen by interventional radiologist and line out man. Thrombolysis/thrombectomy was not recommended. Patient was also seen by renal case manager and Eliquis was started. Risks of Eliquis discussed at length with patient including but not limited to increased risk of bleeding. Patient stated he understood and agreed to take the medication. Patient was initially placed and antibiotics for possible pneumonia. Patient was afebrile. Blood cultures showed no growth. Pro- calcitonin 0.20. Leukocytosis resolved. Antibiotics were stopped. Patient also had transaminitis. CPK was within normal limits. Hepatitis panel was negative. LFTs were trending. GI was consulted and following. Abdominal ultrasound per radiologist showed hepatic steatosis noted without focal mass or intrahepatic biliary duct dilatation; mild to moderate hepatomegaly suggested; body pancreas is unremarkable with the remainder of scared by overlying bowel gas. Abdominal duplex per radiologist showed patent portal vein hepatopetal flow. Per GI, patient can follow up outpatient. Diagnosis of PE, DVT, and transaminitis and need for follow up with hematology and GI was discussed with patient's primary care doctor, Dr. Suresh. Patient was status post ORIF of the right foot fifth metatarsal on 07/22/2017. Patient was seen by podiatry. Patient to follow-up with recruiter account manager as an outpatient for transitioning to a boot. Patient was feeling better. Patient was cleared for discharge by all consultants. Patient was discharged home. On day of discharge, patient stated he was feeling better. Shortness of breath improved. Right lower extremity pain improved. Patient denied headaches or dizziness. No chest pain or palpitations. No nausea, vomiting, or abdominal pain. Patient was tolerating diet well. No fevers or chills. No dysuria or burning with urination. Physical exam: General: Awake and alert sitting up in bed in no acute distress HEENT: Normocephalic, atraumatic. Extraocular muscles intact. Pupils equal and reactive, no scleral icterus. Oropharynx pink and moist. No pharyngeal erythema or exudate appreciated. Neck supple. Cardiovascular: Regular rhythm. Normal S1 and S2. No murmurs, rubs, or gallops appreciated Pulmonary: Normal respiratory effort. Improved breath sounds. No rhonchi, rales, or wheezing appreciated Gastrointestinal: Soft, nondistended. Nontender. Positive bowel sounds all 4 quadrants. No guarding. Musculoskeletal: Moves all extremities. Right lower extremity dressing clean, dry, and intact. Positive edema right lower extremity. No edema or calf tenderne ss left extremity. Central nervous system: AAO x3. No focal deficits appreciated. Dermatologic: Skin warm and dry. Please see chart for full details. Follow up instructions: Patient to follow up with primary care doctor within 3-5 days. Patient to follow up with renal case manager within one week of discharge. Patient to follow up with recruiter account manager within 3-5 days of discharge. Patient to follow up with GI within one week of discharge. Patient to avoid all NSAIDS. Patient to stop his home blood pressure medications metoprolol and HCTZ until seen by his primary care doctor as blood pressure was within normal limits in the hospital off the medications. All instructions explained to the patient in detail. Patient both understands and agrees to all instructions. Written instructions also given. Time spent in discharging the patient including chart review, medication reconciliation, discussion with the patient, medical director of hospice, consultants, and nursing staff was approximately 45 minutes.
== END 2018-08-01 16:05 | disposition home or self-care (01) | DRG 541 ==
LOC: ED 15:41 → ERH 18:10 → 5RNO 20:49
PROVIDERS: ADMIT Internal Medicine; ATTEND Hospitalist
DX: I26.99 Other pulmonary embolism without acute cor pulmonale (principal); I82.421 Acute embolism and thrombosis of right iliac vein; A41.9 Sepsis, unspecified organism; J18.9 Pneumonia, unspecified organism; I10 Essential (primary) hypertension; K76.0 Fatty (change of) liver, not elsewhere classified; R16.0 Hepatomegaly, not elsewhere classified; E66.9 Obesity, unspecified; Z68.31 Body mass index [BMI] 31.0-31.9, adult; F17.210 Nicotine dependence, cigarettes, uncomplicated; S92.351D Displaced fracture of fifth metatarsal bone, right foot, subsequent encounter for fracture with routine healing; W19.XXXD Unspecified fall, subsequent encounter